=== PATIENT | male | born 1970 | race African-American/Black ===

== ENCOUNTER 2017-02-16 12:32 | Observation (INO) | payer BC, OTHER ==
[2017-02-16] MEDS ORDERED: SODIUM CHLORIDE 1,000 ML IV SCH (12:45)
--- NOTE | 2017-02-16 12:52 | PDOC ---
Attending Attestation - Resident Resident Name: Eduardo Corona - ED Attending Attestation I have performed the following: I have examined & evaluated the patient, The case was reviewed & discussed with the resident, I agree w/resident's findings & plan, Exceptions are as noted - HPI HPI: 02/16/17 13:11 The patient is a 46 year old male with past medical history of hypertension, hyperlipidemia, diabetes and asthma who arrives to the ED via EMS from [facility] for R sided facial droop that began this morning upon waking up. Pt's family first noticed it when they went to [place]. Last known normal was at 3am this morning when he went to sleep. He denies any weakness, numbness or tingling in any other extremities, denies slurred speech. Denies HUBER/N/V. Denies CP/SOB. The patient has a family history of stroke - both parents. - Physicial Exam PE: 02/16/17 13:24 "GENERAL: Awake, alert, and fully oriented, in no acute distress HEAD: No signs of trauma EYES: PERRLA, EOMI, sclera anicteric, conjunctiva clear ENT: Auricles normal inspection, hearing grossly normal, nares patent, oropharynx clear without exudates. Moist mucosa NECK: Nontender, no stepoffs, Normal ROM, supple, no lymphadenopathy, JVD, or masses LUNGS: Breath sounds equal, clear to auscultation bilaterally. No wheezes, and no crackles HEART: Regular rate and rhythm, normal S1 and S2, no murmurs, rubs or gallops ABDOMEN: Soft, nontender, normoactive bowel sounds. No guarding, no rebound. No masses EXTREMITIES: Normal range of motion, no edema. No clubbing or cyanosis. No cords, erythema, or tenderness NEUROLOGICAL: R facial droop with NO sparing of forehead, 5/5 strength and sensation in all extremities, Normal speech, normal gait SKIN: Warm, Dry, normal turgor, no rashes or lesions noted. " - Critical Care Time Total Critical Care Time: 30 Critical Care Statement: The care of this patient involved high complexity decision making to prevent further life threatening deterioration of the patient 's condition and/or to evaluate & treat vital organ system(s) failure or risk of failure. - Medical Decision Making 02/16/17 13:24 46 M with R facial droop. 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 Pt with otherwise normal neuro exam, making CVA unlikely. Last known normal was 9 hours prior to arrival, so pt outside window for TPA. - CTH - Labs - Neuro consult - Steroids for Linn's palsy 02/16/17 14:18 CTH negative. Discussed case with Dr. Thomas, who agrees that clinical presentation is more consistent with Linn's palsy. Recommends steroids. Labs notable for Positive Troponin 0.06. EKG with TWI in I and aVL. Discussed EKG and trop results with patient, who states that he was told during a prior hospitalization that he had "ischemia". Denies any chest pain or SOB at this time. He states that he has never seen a mat tester, never had a stress test, cath, or echo. States that he does not have a PMD at this time. Will admit pt for trending of troponin and cardiology consultation. Heart Score/ECG Review - ECG Impressions Comment:: 02/16/17 13:51 NSR, no CARLOS/STDs, TWIs in I and aVL, L axis deviation, intervals wnl NIH Stroke Scale - Last Known Well Date/Time & Onset Date Last Known Well: 02/16/17 Time Last Known Well: 03:00 - Initial Evaluation Level of consciousness: Alert Ask patient the month and their age: Answers both correctly Ask patient to open & close eyes; make fist and let go: Obeys both correctly Best gaze (horizontal eye movement): Normal Visual field testing: No visual field loss Facial paresis (Show teeth/raise eyebrows/close eyes tight): Partial paralysis ( total or near paralysis of lower face) Motor Function: Left Arm: Normal Motor Function: Right Arm: Normal (extends arm 90 (or 45) degrees for 10 seconds without drift Motor Function: Left Leg: Normal (extends leg 30 degrees for 5 seconds without drift) Motor Function: Right Leg: Normal (extends leg 30 degrees for 5 seconds without drift) Limb Ataxia: No ataxia Sensory(Use pinprick test arms,legs,trunk,face/side to side): Normal Best language (Describe picture, name items, read sentences): No Aphasia Dysarthria (read several words): Normal articulation Extinction and Inattention: No abnormality - Total Score NIH Stroke Scale Score: 2
[2017-02-16 12:53] LABS: BASO % 0.8 % (0-2.0); EOS % 4.4 % (0-4.5); HEMATOCRIT 45.1 % (35.4-49); LYMPH % 38.4 % (8-40); MCH 27.8 pg (25.7-33.7); MCHC 33.3 g/dl (32.0-35.9); MEAN CELL VOLUME 83.5 fl (80-96); MEAN PLT VOLUME 8.5 fl (7.5-11.1); MONO % 7.8 % (3.8-10.2); NEUT % 48.6 % (42.8-82.8); PLATELET COUNT 261 K/MM3 (134-434); RBC 5.41 M/mm3 (4.00-5.60); RDW 14.6 % (11.9-15.9); WHITE BLOOD COUNT 5.7 K/mm3 (4.0-10.0)
--- NOTE | 2017-02-16 13:10 | PDOC ---
History of Present Illness - General Stated Complaint: LT SIDE FACIAL DROOP Time Seen by Provider: 02/16/17 12:38 - History of Present Illness Initial Comments: 02/16/17 13:51 Mr. Harvey is a 46 yo male w/ pmh of hypertension and asthma who presents complaining of 4 hour history of facial tingling with progression to right sided facial droop involving both upper and lower halves of his face. He reports he went to bed around 0315 this morning feeling his normal self and that the tingling was present when he woke up around 8:15 this morning. His R eye began watering around 0915 with droop occurring around 1000. He is currently resting comfortably but concerned he may be having a stroke. The patient denies chest pain, shortness of breath, headache and dizziness. Denies fever, chills, nausea, vomit, diarrhea and constipation. Denies dysuria, frequency, urgency and hematuria. Allergies: Moxifloxacin, shellfish Past History - Past Medical History Allergies/Adverse Reactions: Allergies Allergy/AdvReac Type Severity Reaction Status Date / Time moxifloxacin HCl Allergy Intermediate Rash Verified 02/16/17 12:49 [From Avelox] iodine Allergy Verified 02/16/17 12:49 contrast dye Allergy Uncoded 02/16/17 12:49 Home Medications: Ambulatory Orders Amlodipine/Valsartan [Exforge 10-160 mg Tablet] 1 tab PO DAILY 10/28/13 Aspirin [Aspirin EC] 81 mg PO DAILY 10/28/13 Carvedilol [Coreg] 3.125 mg PO DAILY 10/28/13 Asthma: Yes (SEASONAL) HTN: Yes - Surgical History Appendectomy: Yes - Immunization History Td Vaccination: No - Suicide/Smoking/Psychosocial Hx Smoking Status: No Smoking History: Never smoked Years of Tobacco Use: 0 Have you smoked in the past 12 months: No Number of Cigarettes Smoked Daily: 0 Hx Alcohol Use: No Drug/Substance Use Hx: No Substance Use Type: None Review of Systems - Review of Systems Comments:: 02/16/17 13:59 GENERAL/CONSTITUTIONAL: No fever or chills. No weakness. HEAD, EYES, EARS, NOSE AND THROAT: +Right sided facial tingling with drooping of upper and lower face and right sided watery eye. CARDIOVASCULAR: No chest pain or shortness of breath RESPIRATORY: No cough, wheezing, or hemoptysis. GASTROINTESTINAL: No nausea, vomiting, diarrhea or constipation. GENITOURINARY: No dysuria, frequency, or change in urination. MUSCULOSKELETAL: No joint or muscle swelling or pain. No neck or back pain. SKIN: No rash NEUROLOGIC: No headache, vertigo, loss of consciousness, or change in strength/ sensation. ENDOCRINE: No increased thirst. No abnormal weight change HEMATOLOGIC/LYMPHATIC: No anemia, easy bleeding, or history of blood clots. ALLERGIC/IMMUNOLOGIC: No hives or skin allergy. *Physical Exam - Physical Exam Comments: 02/16/17 14:00 GENERAL: Awake, alert, and fully oriented, in no acute distress HEAD: No signs of trauma, normocephalic, atraumatic EYES: PERRLA, EOMI, sclera anicteric, conjunctiva clear ENT: Auricles normal inspection, hearing grossly normal, nares patent, oropharynx clear without exudates. Moist mucosa NECK: Normal ROM, supple, no lymphadenopathy, JVD, or masses LUNGS: No distress, speaks full sentences, clear to auscultation bilaterally HEART: Regular rate and rhythm, normal S1 and S2, no murmurs, rubs or gallops, peripheral pulses normal and equal bilaterally. ABDOMEN: Soft, nontender, normoactive bowel sounds. No guarding, no rebound. No masses EXTREMITIES: Normal inspection, Normal range of motion, no edema. No clubbing or cyanosis. NEUROLOGICAL: Cranial nerves II through XII grossly intact. Normal speech, normal gait, no focal sensorimotor deficits SKIN: Warm, Dry, normal turgor, no rashes or lesions noted. NIH Stroke Scale - Last Known Well Date/Time & Onset Date Last Known Well: 02/16/17 Time Last Known Well: 03:15 - Initial Evaluation Level of consciousness: Alert Ask patient the month and their age: Answers both correctly Ask patient to open & close eyes; make fist and let go: Obeys both correctly Best gaze (horizontal eye movement): Normal Visual field testing: No visual field loss Facial paresis (Show teeth/raise eyebrows/close eyes tight): Complete paralysis of one or both sides (Upper and lower face) Motor Function: Left Arm: Normal Motor Function: Right Arm: Normal (extends arm 90 (or 45) degrees for 10 seconds without drift Motor Function: Left Leg: Normal (extends leg 30 degrees for 5 seconds without drift) Motor Function: Right Leg: Normal (extends leg 30 degrees for 5 seconds without drift) Limb Ataxia: No ataxia Sensory(Use pinprick test arms,legs,trunk,face/side to side): Normal Best language (Describe picture, name items, read sentences): No Aphasia Dysarthria (read several words): Normal articulation Extinction and Inattention: No abnormality - Total Score NIH Stroke Scale Score: 3 tPA Exclusion checklist 3-4.5h - Time Elapsed Date last known well: 02/16/17 Time last known well: 03:15 Elaspsed time: Day(s) and 11 Hour(s) and 48 Minutes - Thrombolytic Therapy Candidate Is patient eligible for thrombolytic therapy: No - Exclusion Criteria 3-4.5 hr SBP greater than 185 or DBP greater than 110mmHg despite tx: No Recent IC/spinal surgery,head trauma or stroke<3mos.: No Hx IC hemorrhage, IC neoplasm, AV malformation or aneurysm: No Active internal bleeding: No Blding diathesis(low plt ct, inc PTT,INR>1.7 or use of NOAC): No Symptoms suggest subarachnoid hemorrhage: No CT demonstrates multilobar infarct(>1/3 cerebral hemiphere): No Arterial puncture at noncompressible site in previous 7 days: No Blood glucose concentration less than 50mg/dL (2.7mmol/L): No - Relative Exclusion Criteria 3-4.5 hr Life expectancy <1 yr or severe co-morbid illness: No : No Patient/family refused: No Rapid improvement: No Stroke severity too mild: Yes Recent acute AL (w/in previous 3 months): No Seizure at onset with postictal residual neuro impairments: No Major surgery or serious trauma w/in previous 14 days: No Recent GI or hemorrhage (w/in previous 21 days): No - Add'l Relative Exclusion 3-4.5 hr Age > 80: No Hx of both diabetes AND prior ischemic stroke: No Taking an oral anticoagulant regardless of INR: No NIHSS >25: No - Ineligibility reason(s) Reasons No tPA given: Outside of window - delayed arrival, See reason(s) noted above Critical Care Time/MDM Note - Medical Decision Making Note: 02/16/17 14:11 Mr. Harvey is a 46 yo male w/ pmh of asthma and hypertension who presents w/ symptoms consistent with Linn's Palsy. Neurology consulted, would like 8 day prednisolone taper started with outpatient follow-up (2 days 80mg, 2 days 60, 2 days 40, 2 days 20). Patient also noted to have mildly increased troponin with T -wave inversions noted on EKG. 02/16/17 14:17 On re-interview patient reports a prior diagnosis of possible cardiac ischemia for which he has never been evaluated. This in conjunction with above cardiac findings prompt admission for cardiac workup. 02/16/17 14:44 Paged hospitalist for admission as patient denies PCP. 02/16/17 15:03 Hospitalist agrees with plan for tele-obs admit. Discharge Disposition - Diagnosis Linn's palsy, Acute electrocardiogram changes, Elevated troponin I level - Discharge Dispostion Admit: Yes - Referrals Referrals: STAFF,NOT ON [Primary Care Provider] - - Patient Instructions - Post Discharge Activity
[2017-02-16 13:12] LABS: INR 1.1 (0.82-1.09); PROTHROMBIN TIME (PATIENT) 12.4 SEC (9.98-11.88)
[2017-02-16 13:19] LABS: ALBUMIN 4.3 g/dl (3.4-5.0); ANION GAP 6 (8-16); BILIRUBIN,TOTAL 0.6 mg/dL (0.2-1.0); BLOOD UREA NITROGEN 16 mg/dL (7-18); CALCIUM 9.1 mg/dL (8.5-10.1); CHLORIDE 103 mmol/L (98-107); CHOLESTEROL 198 mg/dL (50-200); CO2 30 mmol/L (21-32); CREATININE 1.3 mg/dL (0.7-1.3); GLUCOSE,RANDOM 95 mg/dL (74-106); LDL CHOLESTEROL (ONLY SJRH) 136 mg/dL (5-100); POTASSIUM 3.8 mmol/L (3.5-5.1); SGOT/AST 17 U/L (15-37); SGPT/ALT 23 U/L (12-78); SODIUM 139 mmol/L (136-145); TRIGLYCERIDES 178 mg/dL (35-160)
[2017-02-16 13:20] LABS: ALK PHOS 88 U/L (45-117); HDL CHOLESTEROL 31 mg/dL (40-60)
[2017-02-16] MEDS ORDERED: ASPIRIN 325 MG TABLET PO ONE ×2 (14:18→18:45)
[2017-02-16] MEDS ORDERED: PrednisoLONE 15 MG/5 ML UNIT-DOSE CUP PO ONE (14:30)
[2017-02-16] MEDS ORDERED: ACETAMINOPHEN 1000 MG/100 ML VIAL (NON FORMULARY) IVPB ONE (14:39)
--- NOTE | 2017-02-16 15:03 | HP ---
CHIEF COMPLAINT: PCP: HISTORY OF PRESENT ILLNESS: 46 year-old male with a PMH significant for HTN, HLD, NIDDM, and asthma who presented to the ED complaining of four hours of facial tingling with progression to right sided facial droop involving both upper and lower halves of his face. He reports he went to bed around 3:15 am feeling his normal self and that the tingling was present when he woke up around 8:15 am. His right eye began watering around 9:15 am, and the droop occurred around 10:00 am. Patient denied headache, dizziness, lightheadedness, visual disturbance, weakness, unsteadiness. He denied chest pain, palpitations, SOB, WARD, orthopnea, and lower extremity edema. Patient states he follows with his PCP for blood pressure control and she recently told him she was going to adjust his medications because his BP was too high. ER course was notable for: (1) CT head: no acute process; cyst v. polyp right maxillary antrum (2) First troponin 0.6 Recent Travel: No PAST MEDICAL HISTORY: Hypertension Hyperlipidemia NIDDM Asthma PAST SURGICAL HISTORY: Appendectomy Social History: Smoking: no Alcohol: no Drugs: no Family History: Allergies moxifloxacin HCl [From Avelox] Allergy (Intermediate, Verified 02/16/17 12:49) Rash iodine Allergy (Verified 02/16/17 12:49) contrast dye Allergy (Uncoded 02/16/17 12:49) HOME MEDICATIONS: Home Medications Medication Instructions Recorded Amlodipine/Valsartan [Exforge 1 tab PO DAILY 10/28/13 10-160 mg Tablet] Aspirin [Aspirin EC] 81 mg PO DAILY 10/28/13 Carvedilol [Coreg] 3.125 mg PO DAILY 10/28/13 REVIEW OF SYSTEMS CONSTITUTIONAL: Absent: fever, chills, diaphoresis, generalized weakness, malaise, loss of appetite, weight change HEENT: Absent: rhinorrhea, nasal congestion, throat pain, throat swelling, difficulty swallowing, mouth swelling, ear pain, eye pain, visual changes CARDIOVASCULAR: Absent: chest pain, syncope, palpitations, irregular heart rate, lightheadedness , peripheral edema RESPIRATORY: Absent: cough, shortness of breath, dyspnea with exertion, orthopnea, wheezing, stridor, hemoptysis GASTROINTESTINAL: Absent: abdominal pain, abdominal distension, nausea, vomiting, diarrhea, constipation, melena, hematochezia GENITOURINARY: Absent: dysuria, frequency, urgency, hesitancy, hematuria, flank pain, genital pain MUSCULOSKELETAL: Absent: myalgia, arthralgia, joint swelling, back pain, neck pain SKIN: Absent: rash, itching, pallor HEMATOLOGIC/IMMUNOLOGIC: Absent: easy bleeding, easy bruising, lymphadenopathy, frequent infections ENDOCRINE: Absent: unexplained weight gain, unexplained weight loss, heat intolerance, cold intolerance NEUROLOGIC: +right facial numbness, right eye watering, right facial droop Absent: headache, focal weakness or paresthesias, dizziness, unsteady gait, seizure, mental status changes, bladder or bowel incontinence PSYCHIATRIC: Absent: anxiety, depression, suicidal or homicidal ideation, hallucinations. PHYSICAL EXAMINATION Vital Signs - 24 hr 02/16/17 02/16/17 02/16/17 12:32 12:40 14:09 Temperature 97 F L Pulse Rate 74 Pulse Rate [ 72 Right] Respiratory 18 20 Rate Blood Pressure 159/105 Blood Pressure 165/105 [Right Arm] O2 Sat by Pulse 100 100 100 Oximetry (%) GENERAL: Awake, alert, and fully oriented, in no acute distress. HEAD: Right eye watering, right forehead mild droop, mild flattening of nasolabial fold. EYES: Pupils equal, round and reactive to light, extraocular movements intact, sclera anicteric, conjunctiva clear. Able to close right eye completely. EARS, NOSE, THROAT: Ears normal, nares patent, oropharynx clear without exudates. Moist mucous membranes. NECK: Normal range of motion, supple without lymphadenopathy, JVD, or masses. LUNGS: Breath sounds equal, clear to auscultation bilaterally. No wheezes, and no crackles. No accessory muscle use. HEART: Regular rate and rhythm, normal S1 and S2 without murmur, rub or gallop. ABDOMEN: Soft, nontender, not distended, normoactive bowel sounds, no guarding, no rebound, no masses. No hepatomegaly or splenomegaly. MUSCULOSKELETAL: Normal range of motion at all joints. No bony deformities or tenderness. No CVA tenderness. UPPER EXTREMITIES: 2+ pulses, warm, well-perfused. No cyanosis. No clubbing. No peripheral edema. LOWER EXTREMITIES: 2+ pulses, warm, well-perfused. No calf tenderness. No peripheral edema. NEUROLOGICAL: Cranial nerves II-XII intact. Normal speech. Normal gait. PSYCHIATRIC: Cooperative. Good eye contact. Appropriate mood and affect. SKIN: Warm, dry, normal turgor Laboratory Results - last 24 hr 02/16/17 02/16/17 02/16/17 12:40 12:40 12:40 WBC 5.7 RBC 5.41 Hgb 15.0 Hct 45.1 MCV 83.5 MCH 27.8 MCHC 33.3 RDW 14.6 Plt Count 261 MPV 8.5 Neutrophils % 48.6 Lymphocytes % 38.4 Monocytes % 7.8 Eosinophils % 4.4 Basophils % 0.8 PT with INR 12.40 H INR 1.10 Sodium 139 Potassium 3.8 Chloride 103 Carbon Dioxide 30 Anion Gap 6 L BUN 16 Creatinine 1.3 Creat Clearance w eGFR 59.43 Random Glucose 95 Calcium 9.1 Total Bilirubin 0.6 AST 17 ALT 23 Alkaline Phosphatase 88 Creatine Kinase 395 H Creatine Kinase Index 0.4 CK-MB (CK-2) 1.611 Troponin I 0.06 H Total Protein 8.0 Albumin 4.3 Triglycerides 178 H Cholesterol 198 Total LDL Cholesterol 136 H HDL Cholesterol 31 L Blood Type Antibody Screen 02/16/17 12:40 WBC RBC Hgb Hct MCV MCH MCHC RDW Plt Count MPV Neutrophils % Lymphocytes % Monocytes % Eosinophils % Basophils % PT with INR INR Sodium Potassium Chloride Carbon Dioxide Anion Gap BUN Creatinine Creat Clearance w eGFR Random Glucose Calcium Total Bilirubin AST ALT Alkaline Phosphatase Creatine Kinase Creatine Kinase Index CK-MB (CK-2) Troponin I Total Protein Albumin Triglycerides Cholesterol Total LDL Cholesterol HDL Cholesterol Blood Type B POSITIVE Antibody Screen Negative ASSESSMENT/PLAN: 46 year-old male with a PMH significant for HTN, NIDDM, and asthma who presented to the ED with right-sided Linn's Palsy. Placed on observation for initial elevated troponin and multiple risk factors for ACS. Linn's Palsy --mild to moderate dysfunction under House-Brackmann classification --initial dose 80mg prednisone given; patient and have expresse reluctance for course of steroids since patient has taken steroids in the past and experienced mood swings which he found disquieting; if patient agrees, order 80/80, 60/60, 40/40, 20/[address] Thomas --eye care: artificial tears solution hourly while awake (educate patient on self-administration), artificial tears gel at night; offered patient eye patch which he declined Hypertension --BP elevated --continue carvedilol, losartan, amlodipine NIDDM --Novolog sliding scale coverage Asthma --stable, no acute issues Elevated troponin --initial troponin 0.06, two pending --multiple risk factors for ACS: HTN, NIDDM --patient has never had cardiac workup --echo ordered --cardiology consult requested --lipid panel, TSH ordered Right maxillary cyst v. polyp --will need outpatient followup Visit type - Emergency Visit Emergency Visit: Yes ED Registration Date: 02/16/17 Care time: The patient presented to the Emergency Department on the above date and was hospitalized for further evaluation of their emergent condition. - New Patient This patient is new to me today: Yes Date on this admission: 02/17/17 - Critical Care Critical Care patient: No
[2017-02-16] MEDS ORDERED: ASPIRIN 81 MG CHEWABLE TABLETS PO ONE (15:30)
[2017-02-16] MEDS ORDERED: amLODIPine BESYLATE 10 MG TABLET (FP) PO ONE (15:30)
[2017-02-16] MEDS ORDERED: CARVEDILOL 3.125 MG TABLET (FP) PO SCH (15:30)
[2017-02-16] MEDS: VALSARTAN 160 MG TABLET (UD) PO SCH (16:57)
[2017-02-16 17:24] VITALS: BMI 40.7
[2017-02-16] MEDS ORDERED: PT OWN MED DRAWER 7, Y5N ONE (18:06)
[2017-02-16] MEDS ORDERED: ASPIRIN 81 MG CHEWABLE TABLETS PO SCH (18:30)
[2017-02-16] MEDS ORDERED: ASPIRIN COATED 81 MG TABLET.EC PO SCH (18:30)
[2017-02-16] MEDS ORDERED: ASPIRIN 325 MG ENTERIC COATED TABLET (FP) PO ONE (18:45)
[2017-02-17 07:21] LABS: BASO % 0.2 % (0-2.0); EOS % 0.1 % (0-4.5); HEMATOCRIT 47.4 % (35.4-49); HEMOGLOBIN 15.5 GM/dL (11.7-16.9); LYMPH % 9.2 % (8-40); MCH 27.6 pg (25.7-33.7); MCHC 32.7 g/dl (32.0-35.9); MEAN CELL VOLUME 84.4 fl (80-96); MEAN PLT VOLUME 9.2 fl (7.5-11.1); MONO % 0.6 % (3.8-10.2); NEUT % 89.9 % (42.8-82.8); PLATELET COUNT 279 K/MM3 (134-434); RBC 5.62 M/mm3 (4.00-5.60)
[2017-02-17 08:02] LABS: ALBUMIN 3.9 g/dl (3.4-5.0); ANION GAP 9 (8-16); BLOOD UREA NITROGEN 22 mg/dL (7-18); CALCIUM 9.4 mg/dL (8.5-10.1); CHLORIDE 100 mmol/L (98-107); CO2 26 mmol/L (21-32); CREATININE 1.5 mg/dL (0.7-1.3); GLUCOSE,RANDOM 177 mg/dL (74-106); MAGNESIUM 1.8 mg/dL (1.8-2.4); POTASSIUM 4.1 mmol/L (3.5-5.1); SGOT/AST 14 U/L (15-37); SGPT/ALT 23 U/L (12-78); SODIUM 135 mmol/L (136-145)
[2017-02-17 08:04] LABS: ALK PHOS 89 U/L (45-117); BILIRUBIN,TOTAL 0.5 mg/dL (0.2-1.0); TOT PROT 8.2 g/dl (6.4-8.2)
[2017-02-17] MEDS: VALSARTAN 160 MG TABLET (UD) PO SCH ×2 (08:14→09:53)
[2017-02-17] MEDS: amLODIPine BESYLATE 10 MG TABLET (FP) PO SCH ×2 (08:14→09:56)
[2017-02-17 09:08] LABS: CHOLESTEROL 217 mg/dL (50-200); HDL CHOLESTEROL 37 mg/dL (40-60); LDL CHOLESTEROL (ONLY SJRH) 157 mg/dL (5-100); TRIGLYCERIDES 91 mg/dL (35-160)
--- NOTE | 2017-02-17 09:13 | CON.CARD ---
Consult Consult Specialty:: cardio Referred by:: hospitalist Reason for Consultation:: elev troponin - History of Present Illness Chief Complaint: facial droop History of Present Illness: 46 yo male presented with facial droop. dx'd with Linn's palsy here. pt denies any other new neuro sx. no acute CV sx. has sob on exertion stable for at least couple of years he says. no cp, palpitations has been following with his PMD in [place] for 15 yrs, seeing her weekly for BP med titration but thus far not working well. had sleep study, sent for cpap titration but could not tolerate sec to claustrophobia PMH: HTN HPL DM obesity/CRISTI asthma - Alcohol/Substance Use Hx Alcohol Use: No - Smoking History Smoking history: Never smoked Have you smoked in the past 12 months: No Aproximately how many cigarettes per day: 0 Home Medications - Allergies Allergies/Adverse Reactions: Allergies Allergy/AdvReac Type Severity Reaction Status Date / Time moxifloxacin HCl Allergy Intermediate Rash Verified 02/16/17 12:49 [From Avelox] iodine Allergy Verified 02/16/17 12:49 contrast dye Allergy Uncoded 02/16/17 12:49 - Home Medications Home Medications: Ambulatory Orders Aspirin [Aspirin EC] 81 mg PO DAILY 10/28/13 Carvedilol [Coreg] 25 mg PO BID 10/28/13 Diclofenac Sodium 75 mg PO BID 02/16/17 Sitagliptin Phos/Metformin HCl [Janumet 50-1,000 mg Tablet] 1 each PO DAILY 08/27 Telmisartan/Amlodipine [Telmisartan-Amlodipine 80-10] 1 each PO DAILY 02/16/17 Vital Signs: Vital Signs Temperature 98 F 02/17/17 08:16 Pulse Rate 98 H 02/17/17 08:16 Respiratory Rate 18 02/17/17 08:16 Blood Pressure 177/99 02/17/17 08:16 O2 Sat by Pulse Oximetry (%) 98 02/16/17 20:30 - Other Data Labs, Other Data: CBC, BMP 02/17/17 07:00 02/17/17 07:00 INR, PTT INR 1.10 (0.82-1.09) 02/16/17 12:40 Troponin, BNP 02/16/17 02/16/17 12:40 19:40 Troponin I 0.06 H 0.05 Troponin, BNP 02/16/17 02/16/17 12:40 19:40 Troponin I 0.06 H 0.05 Laboratory Tests 02/16/17 02/16/17 02/17/17 12:40 19:40 07:00 WBC 7.0 Hgb 15.5 Plt Count 279 Sodium Potassium Carbon Dioxide BUN 16 Creatinine 1.3 AST ALT Troponin I 0.06 H 0.05 Albumin Triglycerides Cholesterol Total LDL Cholesterol HDL Cholesterol TSH 02/17/17 07:00 WBC Hgb Plt Count Sodium 135 L Potassium 4.1 Carbon Dioxide 26 BUN 22 H D Creatinine 1.5 H AST 14 L ALT 23 Troponin I Albumin 3.9 Triglycerides 91 D Cholesterol 217 H Total LDL Cholesterol 157 H HDL Cholesterol 37 L TSH 0.25 L Assessment/Plan ECG: NSR, LAFB/LVH, no path q's. +nonsp TWA's lateral leads likely LVH assctd repol abn (no prior) CXR: clear lungs/pleura CT head: no acute pathology 46 year-old male with a PMH significant for HTN, NIDDM, and asthma who presented to the ED with right-sided Linn's Palsy. Placed on observation for initial elevated troponin and multiple risk factors for ACS. Linn's Palsy -per neuro rec.s Hypertension -bp running 140s-160s/100s-120s -home regimen amlodip/telmisartan, carvedilol 25 bid (note: incorrect dose in med list here, hence has not received his usual meds) -BP chronically poorly controlled on above regimen -receiving valsartan 160 here--increase dose today -increase carvedilol to outpt dose -start chlorthalidone 25 qd, monitor creat trend -consider change carvedilol to labetalol or bystolic, +/- add hydralazine next -pt advised he should f/u with cardio for bp optimization as outpt, including ? oral appliance tx of CRISTI -echo to r/o LVH or dilated CMP in light of ekg and mild trop elevation YUNIOR: -creat 1.5 today, bumped from yest -pt large body habitus -observe trend with thiazide diuretic HPL: -LDL 150s, HDL low -given this is primary prevention pt, risk/benefit discussion of statin therapy should take place as outpt, with discussion of pooled cohort equation risk of IA /CVA and estimated CV reduction vs risk -pt should f/u with us after discharge for lipid and BP mgmt Elevated troponin -initial troponin 0.06 = not diagnostic of IA, rather c/w IA if clinical suspicion is present. -flat trend on serial enzymes, no clinical suspicion of ACS here -agree with echo (signif LVH, uncontrolled HTN) low TSH: -? hyperthyroidism -per hospitalist NIDDM: -per hospitalist obesity, CRISTI: -intolerant of cpap previously -outpt f/u re: oral appliance therapy
[2017-02-17 09:18] LABS: URINE APPEARANCE SLCLOUDY; URINE BILIRUBIN NEGATIVE (NEGATIVE); URINE BLOOD 1+ (NEGATIVE); URINE COLOR LTYELLOW; URINE GLUCOSE (UA) 1+ (NEGATIVE); URINE KETONE NEGATIVE (NEGATIVE); URINE LEUK ESTERASE NEGATIVE (NEGATIVE); URINE NITRITE NEGATIVE (NEGATIVE); URINE UROBILINOGEN NEGATIVE mg/dL (0.2-1.0)
[2017-02-17 09:19] LABS: URINE PROTEIN 2+ (NEGATIVE)
[2017-02-17 09:23] LABS: URIC ACID CRYSTALS RARE /hpf (NONE SEEN); URINE MUCUS RARE
[2017-02-17] MEDS: ASPIRIN COATED 81 MG TABLET.EC PO SCH (09:53)
[2017-02-17] MEDS: ARTIFICIAL TEARS (POLYVINYL ALCOHOL 1.4%) OPTH DROPS OD SCH ×14 (09:54→23:00)
[2017-02-17] MEDS ORDERED: VALSARTAN 160 MG TABLET (UD) PO SCH (10:00)
[2017-02-17] MEDS ORDERED: ARTIFICIAL TEARS (POLYVINYL ALCOHOL 1.4%) OPTH DROPS OU SCH (10:00)
[2017-02-17] MEDS ORDERED: AMLODIPINE PO SCH (10:00)
[2017-02-17] MEDS ORDERED: TELMISARTAN PO SCH (10:00)
[2017-02-17] MEDS ORDERED: [UNRECOGNIZED DRUG - OTHER] PO SCH (10:00)
[2017-02-17] MEDS ORDERED: ASPIRIN COATED 81 MG TABLET.EC PO SCH (10:00)
[2017-02-17] MEDS: CHLORTHALIDONE 25 MG TABLET PO SCH (11:13)
[2017-02-17] MEDS: CARVEDILOL 25 MG TABLET (FP) PO SCH ×2 (11:59→21:45)
--- NOTE | 2017-02-17 12:13 | EKG ---
Test Reason : Blood Pressure : / mmHG Vent. Rate : 101 BPM Atrial Rate : 101 BPM P-R Int : 164 ms QRS Dur : 098 ms QT Int : 346 ms P-R-T Axes : 037 -51 093 degrees QTc Int : 448 ms SINUS TACHYCARDIA POSSIBLE LEFT ATRIAL ENLARGEMENT LEFT ANTERIOR FASCICULAR BLOCK LEFT VENTRICULAR HYPERTROPHY T WAVE ABNORMALITY, CONSIDER LATERAL ISCHEMIA ABNORMAL ECG WHEN COMPARED WITH ECG OF 16-FEB-2017 13:13, NO SIGNIFICANT CHANGE WAS FOUND Confirmed by PRAVIN MAGALLANES MD ([id number]) on 02/17/2017 12:13:23 PM Referred By: Confirmed By:PRAVIN MAGALLANES MD
--- NOTE | 2017-02-17 12:37 | EKG ---
Test Reason : Blood Pressure : / mmHG Vent. Rate : 071 BPM Atrial Rate : 071 BPM P-R Int : 148 ms QRS Dur : 110 ms QT Int : 380 ms P-R-T Axes : 027 -46 090 degrees QTc Int : 412 ms NORMAL SINUS RHYTHM LEFT ANTERIOR FASCICULAR BLOCK MINIMAL VOLTAGE CRITERIA FOR LVH, MAY BE NORMAL VARIANT ABNORMAL ECG NO PREVIOUS ECGS AVAILABLE Confirmed by PRAVIN MAGALLANES MD ([id number]) on 02/17/2017 12:36:55 PM Referred By: Confirmed By:PRAVIN MAGALLANES MD
[2017-02-17] MEDS ORDERED: predniSONE 20 MG TABLET (UD) PO ONE (15:22)
--- NOTE | 2017-02-17 17:13 | PN ---
Progress Note (short form) - Note Progress Note: Subjective: The patient was seen and examined at the bedside, he reports mild improvement in his right facial weakness. Current Medications Generic Name Dose Route Start Last Admin Trade Name Blaise PRN Reason Stop Dose Admin Amlodipine Besylate 10 mg 02/17/17 10:00 02/17/17 09:56 Norvasc - PO Not Given DAILY SAN[facility] Artificial Tears 1 applic 02/17/17 22:00 Artificial Tears Ointment - OD HS SANDRO Artificial Tears 1 drop 02/17/17 10:00 02/17/17 18:02 Artificial Tears OD 1 drop Q1H [facility] Administration Aspirin 81 mg 02/17/17 10:00 02/17/17 09:53 Ecotrin - PO 81 mg DAILY [facility] Administration Carvedilol 25 mg 02/17/17 11:30 02/17/17 11:59 Coreg - PO 25 mg BID [facility] Administration Chlorthalidone 25 mg 02/17/17 10:00 02/17/17 11:13 Hygroton - PO 25 mg DAILY SAN[facility] Administration Prednisone 60 mg 02/18/17 15:00 Deltasone - PO 02/19/17 15:01 DAILY@1500 SANDRO Valsartan 320 mg 02/17/17 09:14 02/17/17 09:53 Diovan - PO 320 mg DAILY SAN[facility] Administration Objective: Vital Signs Period Temp Pulse Resp BP Sys/Castillo Pulse Ox Last 24 Hr 98 F-98.6 F 78-98 18-20 134-177/74-104 98-98 Physical Exam: General: CBCD WBC 7.0 K/mm3 (4.0-10.0) 02/17/17 07:00 RBC 5.62 M/mm3 (4.00-5.60) H 02/17/17 07:00 Hgb 15.5 GM/dL (11.7-16.9) 02/17/17 07:00 Hct 47.4 % (35.4-49) 02/17/17 07:00 MCV 84.4 fl (80-96) 02/17/17 07:00 MCHC 32.7 g/dl (32.0-35.9) 02/17/17 07:00 RDW 15.0 % (11.9-15.9) 02/17/17 07:00 Plt Count 279 K/MM3 (134-434) 02/17/17 07:00 MPV 9.2 fl (7.5-11.1) 02/17/17 07:00 CMP Sodium 135 mmol/L (136-145) L 02/17/17 07:00 Potassium 4.1 mmol/L (3.5-5.1) 02/17/17 07:00 Chloride 100 mmol/L (98-107) 02/17/17 07:00 Carbon Dioxide 26 mmol/L (21-32) 02/17/17 07:00 Anion Gap 9 (8-16) 02/17/17 07:00 BUN 22 mg/dL (7-18) H D 02/17/17 07:00 Creatinine 1.5 mg/dL (0.7-1.3) H 02/17/17 07:00 Creat Clearance w eGFR 50.38 (>60) 02/17/17 07:00 Random Glucose 177 mg/dL (74-106) H D 02/17/17 07:00 Calcium 9.4 mg/dL (8.5-10.1) 02/17/17 07:00 Total Bilirubin 0.5 mg/dL (0.2-1.0) 02/17/17 07:00 AST 14 U/L (15-37) L 02/17/17 07:00 ALT 23 U/L (12-78) 02/17/17 07:00 Alkaline Phosphatase 89 U/L (45-117) 02/17/17 07:00 Total Protein 8.2 g/dl (6.4-8.2) 02/17/17 07:00 Albumin 3.9 g/dl (3.4-5.0) 02/17/17 07:00 CARDIAC ENZYMES Creatine Kinase 395 IU/L (39-308) H 02/16/17 12:40 Troponin I 0.05 ng/ml (0.00-0.05) 02/16/17 19:40 Assessment: This is a 46 year old male with PMHx of HTN, NIDDM, asthma, who presented to the ED with right facial droop that began this morning after waking up. 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
--- NOTE | 2017-02-17 21:06 | CONSULT ---
Consult - text type - Consultation Consultation Note: NEUROLOGY CONSULTATION is greatly appreciated: This 46 yo RH m man is a [employer] who has been out of work since due to R Achilles tendon injury. PMH sig for HT and asthma on amliodipine, valsartan, carvedilol and ASA. On Friday morning his noted Right facial droop driving to [place]. In retrospect Pt. recalls Right periauricular headache x 2 days, tearing from the right eye on Friday night while watching TV and a "novacane feeling" over the right posterior tongue. Case discussed with Dr. Corona in the ER last night. Tapering steroids and a Lyme titre were recommended. Pt is admitted for BP condtrol. Dr. David's consultation is read and appreciated. CT of head (reviewed) is normal. TSH=0.25; HR=331; Ctgj=130 DENIA: Obese, no bruits. cor reg. External auditory canals are clear of vessicles. NEURO: MS/speech: Normal CN II-XII: sig for moderate, peripheral, CN VII mononeuropathy with complete volitional eye closure. Remainder CN normal Motor: No drift or tremor. Normal strength, tone and bulk. normal reflexes. downgoing toes. Coord: No FTN dystaxia Sensory: Normal including the face. Romberg - Gait: Normal IMP: Right CN VII Mononeuropathy (Linn's Palsy). Suggest: Continue Prednisone 80 mg /d x 2; 60 mg/d x2; 40 mg/d x2 and 20 mg/d x2. Check Lyme titre when available. Continue BP control. Consider chol Rx. Weight loss counselling. Repeat TSH and check T4 Neuro f/u as out patient. Thank you very much, Christian Thomas MD
[2017-02-17] MEDS ORDERED: MINERAL OIL/PETROLATUM,WHITE 3.5 GM TUBE OD SCH (22:00)
[2017-02-18] MEDS: ARTIFICIAL TEARS (POLYVINYL ALCOHOL 1.4%) OPTH DROPS OD SCH ×13 (02:59→14:15)
[2017-02-18 07:40] LABS: ANION GAP 8 (8-16); BLOOD UREA NITROGEN 23 mg/dL (7-18); CHLORIDE 100 mmol/L (98-107); CO2 28 mmol/L (21-32); GLUCOSE,RANDOM 131 mg/dL (74-106); POTASSIUM 3.9 mmol/L (3.5-5.1); SODIUM 136 mmol/L (136-145)
[2017-02-18 07:46] LABS: CALCIUM 10.1 mg/dL (8.5-10.1); CREATININE 1.4 mg/dL (0.7-1.3)
[2017-02-18] MEDS ORDERED: PT OWN MED DRAWER 7, Y5N ONE ×3 (08:06→14:13)
[2017-02-18 08:20] VITALS: TEMP 98
[2017-02-18] MEDS: CHLORTHALIDONE 25 MG TABLET PO SCH (09:05)
[2017-02-18] MEDS: ASPIRIN COATED 81 MG TABLET.EC PO SCH (09:05)
[2017-02-18] MEDS: VALSARTAN 160 MG TABLET (UD) PO SCH (09:05)
[2017-02-18] MEDS: amLODIPine BESYLATE 10 MG TABLET (FP) PO SCH (09:05)
[2017-02-18] MEDS: CARVEDILOL 25 MG TABLET (FP) PO SCH (09:05)
--- NOTE | 2017-02-18 11:53 | PN ---
Progress Note (short form) - Note Progress Note: Consult Specialty:: cardio Referred by:: hospitalist Reason for Consultation:: elev troponin - History of Present Illness Chief Complaint: facial droop History of Present Illness: 46 yo male presented with facial droop. dx'd with Linn's palsy here. pt denies any other new neuro sx. no acute CV sx. has sob on exertion stable for at least couple of years he says. no cp, palpitations has been following with his PMD in [place] for 15 yrs, seeing her weekly for BP med titration but thus far not working well. had sleep study, sent for cpap titration but could not tolerate sec to claustrophobia PMH: HTN HPL DM obesity/CRISTI asthma Current Medications Amlodipine Besylate (Norvasc -) 10 mg PO DAILY [facility] Last Admin: 02/18/17 09:05 Dose: 10 mg Artificial Tears (Artificial Tears Ointment -) 1 applic OD HS [facility] Last Admin: 02/17/17 21:44 Dose: Not Given Artificial Tears (Artificial Tears) 1 drop OD Q1H [facility] Last Admin: 02/18/17 09:06 Dose: 1 drop Aspirin (Ecotrin -) 81 mg PO DAILY [facility] Last Admin: 02/18/17 09:05 Dose: 81 mg Carvedilol (Coreg -) 25 mg PO BID [facility] Last Admin: 02/18/17 09:05 Dose: 25 mg Chlorthalidone (Hygroton -) 25 mg PO DAILY [facility] Last Admin: 02/18/17 09:05 Dose: 25 mg Prednisone (Deltasone -) 60 mg PO DAILY@1500 [facility] Stop: 02/19/17 15:01 Valsartan (Diovan -) 320 mg PO DAILY [facility] Last Admin: 02/18/17 09:05 Dose: 320 mg Vital Signs - 24 hr 02/17/17 02/17/17 02/17/17 13:00 19:10 20:09 Temperature 98 F 98.6 F 98.4 F Pulse Rate 88 76 83 Respiratory 20 19 20 Rate Blood Pressure 134/74 151/98 175/103 O2 Sat by Pulse Oximetry (%) 02/18/17 02/18/17 02/18/17 02:00 06:00 08:16 Temperature 97.9 F 98.0 F Pulse Rate 68 72 70 Respiratory 20 18 18 Rate Blood Pressure 135/76 156/101 137/102 O2 Sat by Pulse Oximetry (%) 02/18/17 08:20 Temperature Pulse Rate Respiratory 18 Rate Blood Pressure O2 Sat by Pulse 98 Oximetry (%) Intake & Output 02/16/17 02/17/17 02/18/17 02/19/17 07:59 07:59 07:59 07:59 Intake Total 400 200 Balance 400 200 Weight 260 lb CBC, BMP 02/17/17 07:00 02/18/17 06:50 Laboratory Tests 02/16/17 02/17/17 02/18/17 19:40 07:00 06:50 Troponin I 0.05 0.05 Albumin 3.9 Triglycerides 91 D Cholesterol 217 H Total LDL Cholesterol 157 H HDL Cholesterol 37 L TSH 0.17 L D Free T4 0.88 Assessment/Plan ECG: NSR, LAFB/LVH, no path q's. +nonsp TWA's lateral leads likely LVH assctd repol abn (no prior) tele: SR echo: CXR: clear lungs/pleura CT head: no acute pathology 46 year-old male with a PMH significant for HTN, NIDDM, and asthma who presented to the ED with right-sided Linn's Palsy. Placed on observation for initial elevated troponin and multiple risk factors for ACS. Linn's Palsy -per neuro rec.s Hypertension -bp running 140s-160s/100s-120s -home regimen amlodip/telmisartan, carvedilol 25 bid (note: incorrect dose in med list here, initially did not not received his usual meds). BP chronically poorly controlled on above regimen. started chlorthalidone 25 qd here. , monitor creat trend -consider change carvedilol to labetalol or bystolic, +/- add hydralazine next -pt advised he should f/u with cardio for bp optimization as outpt, including ? oral appliance tx of CRISTI -echo to r/o LVH or dilated CMP in light of ekg and mild trop elevation YUNIOR: -creat 1.5 today, bumped from yest -pt large body habitus -observe trend with thiazide diuretic HPL: -LDL 150s, HDL low -given this is primary prevention pt, risk/benefit discussion of statin therapy should take place as outpt, with discussion of pooled cohort equation risk of NV /CVA and estimated CV reduction vs risk -pt should f/u with us after discharge for lipid and BP mgmt Elevated troponin -initial troponin 0.06 = not diagnostic of NV, rather c/w NV if clinical suspicion is present. -flat trend on serial enzymes, no clinical suspicion of ACS here -agree with echo (signif LVH, uncontrolled HTN) low TSH: -? hyperthyroidism -per hospitalist NIDDM: -per hospitalist obesity, CRISTI: -intolerant of cpap previously -outpt f/u re: oral appliance therapy
[2017-02-18 12:52] VITALS: BP 140/91; PULSE 63
--- NOTE | 2017-02-18 13:07 | DS ---
Physical Examination Vital Signs: Vital Signs Temperature 98.0 F 02/18/17 08:16 Pulse Rate 63 02/18/17 12:51 Respiratory Rate 18 02/18/17 08:20 Blood Pressure 140/91 02/18/17 12:51 O2 Sat by Pulse Oximetry (%) 98 02/18/17 08:20 Labs: CBC, BMP 02/17/17 07:00 02/18/17 06:50 Discharge Summary Reason For Visit: LINN'S PALSY, ELEVATED TROPONIN I LEVEL,ACUTE ELEC Current Active Problems Acute electrocardiogram changes (Acute) Linn's palsy (Acute) Elevated troponin I level (Acute) Hospital Course: Discussed with RN, patient's BP 140/91 Condition: Improved - Instructions Diet, Activity, Other Instructions: Please return to the ED with new, persistent, or worsening symptoms. Please follow-up with providers as indicated. Referrals: Tanna Smith MD [Staff Physician] - (Please follow-up with Dr. Smith ( cardiology) within 1 week for further management of your blood pressure and to discuss starting medication for your cholesterol) Christian Thomas MD [Staff Physician] - (Please follow-up with Dr. Thomas for further management of your Linn's palsy) Joselo Palmer MD [Staff Physician] - (Please follow-up with your primary care provider within 1 week to have your basic metabolic panel re-drawn (check your creatinine and electrolytes). Also, you must have your thyroid stimulating hormone and T4 rechecked in 4 weeks. ) Disposition: HOME - Home Medications Comprehensive Discharge Medication List: Ambulatory Orders Aspirin [Aspirin EC] 81 mg PO DAILY 10/28/13 Amlodipine Besylate [Norvasc -] 10 mg PO DAILY #30 tablet 02/18/17 Carvedilol [Coreg -] 25 mg PO BID #60 tablet 02/18/17 Chlorthalidone [Hygroton -] 25 mg PO DAILY #30 tablet 02/18/17 Pantoprazole Sodium [Protonix] 40 mg PO DAILY #14 tablet. 02/18/17 Polyvinyl Alcohol [Artificial Tears] 1 drop OD Q1H #1 bot 02/18/17 Prednisone [Deltasone -] 20 mg PO ASDIR #9 tablet 02/18/17 Sitagliptin Phosphate [Januvia] 50 mg PO DAILY #30 tablet 02/18/17 Valsartan 320 mg PO DAILY #30 tablet 02/18/17
[2017-02-18] MEDS ORDERED: predniSONE 20 MG TABLET (UD) PO SCH (15:00)
== END 2017-02-18 14:41 | disposition home or self-care (01) ==
LOC: JER 12:32 → JERBED 15:05 → J4W 16:20
PROVIDERS: ADMIT Internal Medicine; ATTEND Registered Nurse
DX: G51.0 Bell's palsy (principal); R94.31 Abnormal electrocardiogram [ECG] [EKG]; R77.8 Other specified abnormalities of plasma proteins; E78.5 Hyperlipidemia, unspecified; E11.9 Type 2 diabetes mellitus without complications; I10 Essential (primary) hypertension; E66.9 Obesity, unspecified; N17.9 Acute kidney failure, unspecified; J45.998 Other asthma; Z88.1 Allergy status to other antibiotic agents; Z91.048 Other nonmedicinal substance allergy status; Z91.041 Radiographic dye allergy status; Z68.41 Body mass index [BMI] 40.0-44.9, adult
CPT/HCPCS: 36415; 70450-TC; 71045-TC; 80048; 80053; 80061; 81003; 81015; 82465; 82550; 82553; 83718; 83721; 83735; 84439; 84443; 84478; 84484; 85025; 85610; 86618; 86850; 86900; 86901; 93005; 93010; 93306-TC; 99285-25; G0378

== ENCOUNTER 2017-03-31 12:55 | Emergency (ER) | payer BC, OTHER ==
[2017-03-31 13:11] VITALS: BP 113/70; PULSE 72; TEMP 98.5; BMI 42.7
[2017-03-31] MEDS ORDERED: KETOROLAC TROMETHAMINE 30 MG/1 ML VIAL IM ONE (13:24)
--- NOTE | 2017-03-31 13:47 | PDOC ---
History of Present Illness - General Chief Complaint: Pain Stated Complaint: LEFT FOOT, KNEE PAIN Time Seen by Provider: 03/31/17 13:01 - History of Present Illness Initial Comments: 03/31/17 13:43 46 M with h/o DM, HTN, HLD presenting to ED with LLE swelling and pain. Pt states that he injured his R ankle 3 weeks ago, tearing 2 ligaments. He has since been ambulating with a cane and has been bearing most of his weight on his L leg. Pt denies any falls or injury. He states that over the past 3 weeks, he has had progressively worsening pain and swelling in both his L knee and ankle. Denies any fevers, denies redness. The swelling usually improves with rest and elevation. He has not taken anything for pain other than one naproxen last night, which helped minimally. Pt has h/o gout in his big toe but states this feels different. Pt is still able to ambulate and bear weight. Past History - Past Medical History Allergies/Adverse Reactions: Allergies Allergy/AdvReac Type Severity Reaction Status Date / Time moxifloxacin HCl Allergy Intermediate Rash Verified 03/31/17 13:10 [From Avelox] iodine Allergy Verified 03/31/17 13:10 contrast dye Allergy Uncoded 03/31/17 13:10 Home Medications: Ambulatory Orders Aspirin [Aspirin EC] 81 mg PO DAILY 10/28/13 Amlodipine Besylate [Norvasc -] 10 mg PO DAILY #30 tablet 02/18/17 Carvedilol [Coreg -] 25 mg PO BID #60 tablet 02/18/17 Chlorthalidone [Hygroton -] 25 mg PO DAILY #30 tablet 02/18/17 Pantoprazole Sodium [Protonix] 40 mg PO DAILY #14 tablet. 02/18/17 Polyvinyl Alcohol [Artificial Tears] 1 drop OD Q1H #1 bot 02/18/17 Sitagliptin Phosphate [Januvia] 50 mg PO DAILY #30 tablet 02/18/17 Valsartan 320 mg PO DAILY #30 tablet 02/18/17 predniSONE [Deltasone -] 20 mg PO ASDIR #9 tablet 02/18/17 Oxycodone HCl/Acetaminophen [Percocet 5-325 mg Tablet] 1 tab PO Q6H PRN #12 tablet MDD 4 tabs 03/31/17 Asthma: Yes (SEASONAL) CVA: No COPD: No Diabetes: Yes HTN: Yes - Surgical History Appendectomy: Yes - Immunization History Td Vaccination: No - Suicide/Smoking/Psychosocial Hx Smoking Status: No Smoking History: Never smoked Years of Tobacco Use: 0 Have you smoked in the past 12 months: No Number of Cigarettes Smoked Daily: 0 Hx Alcohol Use: No Drug/Substance Use Hx: No Substance Use Type: None Review of Systems - Review of Systems Comments:: 03/31/17 13:45 "GENERAL/CONSTITUTIONAL: No fever or chills. No weakness. HEAD, EYES, EARS, NOSE AND THROAT: No change in vision. No ear pain or discharge. No sore throat. CARDIOVASCULAR: No chest pain or shortness of breath. RESPIRATORY: No cough, wheezing, or hemoptysis. GASTROINTESTINAL: No nausea, vomiting, diarrhea or constipation. GENITOURINARY: No dysuria, frequency, or change in urination. MUSCULOSKELETAL: L knee and ankle swelling and pain. No neck or back pain. SKIN: No rash NEUROLOGIC: No headache, vertigo, loss of consciousness, or change in strength/ sensation. ENDOCRINE: No increased thirst. No abnormal weight change. HEMATOLOGIC/LYMPHATIC: No anemia, easy bleeding, or history of blood clots. ALLERGIC/IMMUNOLOGIC: No hives or skin allergy. " *Physical Exam - Vital Signs Last Vital Signs Temp Pulse Resp BP Pulse Ox 98.5 F 72 18 113/70 96 03/31/17 12:55 03/31/17 12:55 03/31/17 12:55 03/31/17 12:55 03/31/17 12:55 - Physical Exam Comments: 03/31/17 13:45 "GENERAL: Awake, alert, and fully oriented, in no acute distress HEAD: No signs of trauma EYES: PERRLA, EOMI, sclera anicteric, conjunctiva clear ENT: Auricles normal inspection, hearing grossly normal, nares patent, oropharynx clear without exudates. Moist mucosa NECK: Nontender, no stepoffs, Normal ROM, supple, no lymphadenopathy, JVD, or masses LUNGS: Breath sounds equal, clear to auscultation bilaterally. No wheezes, and no crackles HEART: Regular rate and rhythm, normal S1 and S2, no murmurs, rubs or gallops ABDOMEN: Soft, nontender, normoactive bowel sounds. No guarding, no rebound. No masses EXTREMITIES: LLE with mild effusion of ankle and knee without any bony tenderness, Normal range of motion. no erythema, No clubbing or cyanosis. No cords, erythema, or tenderness NEUROLOGICAL: Cranial nerves II through XII intact. 5/5 strength and sensation in all extremities, Normal speech, normal gait, normal cerebellar function SKIN: Warm, Dry, normal turgor, no rashes or lesions noted. " ED Treatment Course - RADIOLOGY Radiology Studies Ordered: Category Date Time Status DUPLEX VASCUL US-1 LEG [US] Stat Ultrasound 03/31/17 13:24 Ordered Medical Decision Making - Medical Decision Making 03/31/17 13:46 46 M with L knee and ankle pain and swelling. Likely bursitis/tendinitis from overuse. Pt with no bony tenderness and no trauma to suggest acute fx. Pt with no infectious symptoms and normal ROM, making septic arthritis less likely. Possible pseudogout. DVT unlikely but given asymmetric swelling, will obtain US. - LLE doppler - Percocet 03/31/17 14:23 US negative for DVT. Pt reassessed - pain improved with percocet. Likely bursitis/tendinitis, possible pseudogout. Pt ambulatory with cane. Pt is well appearing, with normal vitals. Clinically stable for DC at this time. I discussed the physical exam findings, ancillary test results and final diagnoses with the patient. I answered all of the patient's questions. The patient was satisfied with the care received and felt comfortable with the discharge plan and treatment plan. The patient agrees to follow up with the primary care physician within 24-72 hours. *DC/Admit/Observation/Transfer Diagnosis at time of Disposition: Left knee pain - Discharge Dispostion Disposition: HOME Condition at time of disposition: Stable - Prescriptions Prescriptions: Oxycodone HCl/Acetaminophen [Percocet 5-325 mg Tablet] 1 tab PO Q6H PRN #12 tablet MDD 4 tabs PRN Reason: Pain - Referrals Referrals: Von Dean MD [Staff Physician] - - Patient Instructions Printed Discharge Instructions: DI for Knee Effusion Additional Instructions: Please follow up with your orthopedic surgeon within 72 hours for further evaluation of your knee pain. If you experience any worsening swelling, pain, redness, warmth, fevers, or any other concerning symptoms, return to the ER immediately. - Post Discharge Activity - Attestations Physician Attestion: 03/31/17 14:15 I, Dr. Von Warren MD, attest that this document has been prepared under my direction and personally reviewed by me in its entirety. I further attest, that it accurately reflects all work, treatment, procedures and medical decision -making performed by me.
[2017-03-31] MEDS ORDERED: KETOROLAC TROMETHAMINE 30 MG/1 ML VIAL ONE (13:50)
== END 2017-03-31 14:30 | disposition home or self-care (01) ==
LOC: FER 12:55
PROC: 3E0333Z Introduction of Anti-inflammatory into Peripheral Vein, Percutaneous Approach (ICD-10-PCS; principal; 2017-03-31)
DX: M25.562 Pain in left knee (principal); M25.572 Pain in left ankle and joints of left foot; I10 Essential (primary) hypertension; E78.5 Hyperlipidemia, unspecified; E11.9 Type 2 diabetes mellitus without complications; Z88.1 Allergy status to other antibiotic agents; Z91.041 Radiographic dye allergy status; Z91.048 Other nonmedicinal substance allergy status; Z79.82 Long term (current) use of aspirin
CPT/HCPCS: 93971-TC; 99283-25

== ENCOUNTER 2017-04-30 09:29 | Emergency (ER) | payer BC ==
[2017-04-30 09:57] VITALS: BP 130/90; PULSE 78; TEMP 98.9; BMI 38.7
--- NOTE | 2017-04-30 10:01 | PDOC ---
History of Present Illness - General Chief Complaint: Pain Stated Complaint: RIGHT ELBOW BURSITIS Time Seen by Provider: 04/30/17 09:51 - History of Present Illness Initial Comments: 04/30/17 10:38 Chief complaint: Pain and swelling right elbow History of present illness: Blunt trauma to right elbow several days ago, progressive pain and swelling over the olecranon. Review of systems: No fever/chills, distal numbness tingling pain or weakness, limited range of motion. No other injuries. Past medical history: Eny-rcedekp-iyljhizff diabetes. Olecranon bursitis of the left elbow several years ago. High blood pressure. Social/family history reviewed and noncontributory Physical exam: Alert and oriented well-developed well-nourished no acute distress cheerful and cooperative Right elbow: Olecranon bursitis with swelling, fluctuance, erythema, heat, and moderate tenderness. Pulses full. No distal sensory or motor deficits. Full range of motion. No deformity suggestive of a fracture. Impression: Olecranon bursitis, possibly infected. Plan: Antibiotics, aspiration and culture, compression, and orthopedic follow- up. Past History - Past Medical History Allergies/Adverse Reactions: Allergies Allergy/AdvReac Type Severity Reaction Status Date / Time moxifloxacin HCl Allergy Intermediate Hives Verified 04/30/17 09:41 [From Avelox] iodine Allergy Hives Verified 04/30/17 09:41 contrast dye Allergy Intermediate Hives Uncoded 04/30/17 09:41 Home Medications: Ambulatory Orders Aspirin [Aspirin EC] 81 mg PO DAILY 10/28/13 Amlodipine Besylate [Norvasc -] 10 mg PO DAILY #30 tablet 02/18/17 Carvedilol [Coreg -] 25 mg PO BID #60 tablet 02/18/17 Chlorthalidone [Hygroton -] 25 mg PO DAILY #30 tablet 02/18/17 Sitagliptin Phosphate [Januvia] 50 mg PO DAILY #30 tablet 02/18/17 Valsartan 320 mg PO DAILY #30 tablet 02/18/17 Oxycodone HCl/Acetaminophen [Percocet 5-325 mg Tablet] 1 tab PO Q6H PRN #12 tablet MDD 4 tabs 03/31/17 Asthma: Yes (SEASONAL) CVA: No COPD: No Diabetes: Yes HTN: Yes Other medical history: GOUT AND BRUSITIS - Surgical History Appendectomy: Yes - Immunization History Td Vaccination: No - Suicide/Smoking/Psychosocial Hx Smoking Status: No Smoking History: Never smoked Years of Tobacco Use: 0 Have you smoked in the past 12 months: No Number of Cigarettes Smoked Daily: 0 Information on smoking cessation initiated: No Hx Alcohol Use: No Drug/Substance Use Hx: No Substance Use Type: None *Physical Exam - Vital Signs Last Vital Signs Temp Pulse Resp BP Pulse Ox 98.9 F 78 20 130/90 98 04/30/17 09:34 04/30/17 09:34 04/30/17 09:34 04/30/17 09:34 04/30/17 09:34 Medical Decision Making - Medical Decision Making 04/30/17 10:41 Procedure note: Aspiration of olecranon bursa Skin was prepped with Betadine, then thoroughly scrubbed with saline. Local anesthetic was administered distal to the bursa. Aspiration of the bursa was accomplished, entering the bursa distally through the soft tissue of the forearm to avoid direct penetration. Approximately 10 mL of serosanguineous fluid was obtained and sent for culture Bacitracin was applied to the wound, the wound was covered with 4 x 4, and an Sylvain bandage was applied for mild pressure. Wound care, rest and elevation, and continue compression were recommended. Signs of worsening infection were discussed with the patient and he was advised to follow-up with orthopedist in 3-5 days for further treatment. He and his agree, he was fully ambulatory and in no significant pain or other distress upon discharge with his to follow-up as directed. *DC/Admit/Observation/Transfer Diagnosis at time of Disposition: Olecranon bursitis, right elbow - Discharge Dispostion Disposition: HOME Condition at time of disposition: Improved Admit: No - Referrals Referrals: Von Dean MD [Staff Physician] - 3 days - Patient Instructions Printed Discharge Instructions: How to Apply an Sylvain Wrap, DI for Elbow Bursitis Additional Instructions: Antibiotics as directed. Wound care with bacitracin as directed. If no improvement, especially if there is increased pain, swelling, redness, or drainage, see management development specialist as recommended. - Post Discharge Activity
[2017-04-30] MEDS ORDERED: CEPHALEXIN MONOHYDRATE 500 MG CAPSULE (UD) PO ONE (10:02)
[2017-04-30] MEDS ORDERED: CEPHALEXIN MONOHYDRATE 500 MG CAPSULE (UD) ONE (10:34)
== END 2017-04-30 11:03 | disposition home or self-care (01) ==
LOC: FER 09:29
DX: M70.21 Olecranon bursitis, right elbow (principal); X58.XXXA Exposure to other specified factors, initial encounter; Y93.89 Activity, other specified; Y92.9 Unspecified place or not applicable; J30.2 Other seasonal allergic rhinitis; E11.9 Type 2 diabetes mellitus without complications; I10 Essential (primary) hypertension
CPT/HCPCS: 87070; 87205; 99282-25

== ENCOUNTER 2019-10-09 10:03 | Emergency (ER) | payer BC, OTHER ==
[2019-10-09] MEDS ORDERED: IBUPROFEN 600 MG TABLET (FP) PO ONE ×2 (10:08→10:19)
--- NOTE | 2019-10-09 10:13 | PDOC ---
History of Present Illness - General Chief Complaint: Pain Stated Complaint: LEFT KNEE PAIN AND SWELLING Time Seen by Provider: 10/09/19 10:08 History Source: Patient, Family Exam Limitations: No Limitations - History of Present Illness Initial Comments: 10/09/19 10:09 HPI 49 YOM with h/o HTN, ankle fx s/p repair, DM, gout presenting with left knee pain and swelling x 4 days. He stated he was walking outdoors, when his left knee buckled. no fall or additional trauma. since then, progressively worsening left knee pain, swelling and redness. He has tried topical anesthetics, ice, tylenol, without much relief. He admits to having similar knee pain on the C/L side, which was attributed to meniscal tear. he has also sustained a right ankle/foot fx after buckling, s/p surgical repair in 03/2019 no f/c. no focal weakness or paresthesias. no skin color changes or pallor. he is also c/o left lower back pain, with radiation down his left buttock, worse with movement. pt states he has history of gout, recently started taking allopurinol daily; has prn colchicine. he is compliant with his diet, no seafood intake, no red meats or deli meats or alcohol use. Review of Systems Constitutional: no fevers or chills. MUSCULOSKELETAL: + joint pain and swelling. No muscle pain/arthralgias. Back: back pain SKIN: no redness or skin changes, no discharge, no rash. No wounds. Hematologic: no easy bruising/bleeding. NEUROLOGIC: No focal weakness, numbness or tingling. Allergic/Immunologic: +medication allergies All other systems reviewed and negative, or as documented in HPI. physical exam General: NAD, well appearing HEENT: NCAT, EOMI, PERRL. airway patent Resp: no distress, speaking full sentences. Abdomen: soft, no tenderness, nondistended Vascular: 2+ DP pulses symmetric and equal. Back: no midline tenderness, no stepoffs, FROM MSK: b/l lower extremities with soft compartment. no calf tenderness. 5/5 plantar and dorsiflexion. SILT. no laxity at knee jt. 2+ DP pulses bilaterally. +moderately swollen Left anterior knee +palp suprapatellar knee effusion. Neuro: alert, no focal neurologic deficits, 5/5 plantar and dorsiflexion, SILT in L1-S1 distribution, wiggles toes bilaterally Skin: color normal color, warm and well perfused. Cap refill <2 sec. left anterior and suprapatellar knee warmth, tender and swollen; no erythema or skin discoloration 10/09/19 10:10 10/09/19 14:44 10/09/19 14:52 10/09/19 15:24 Past History - Medical History Allergies/Adverse Reactions: Allergies Allergy/AdvReac Type Severity Reaction Status Date / Time moxifloxacin HCl Allergy Intermediate Hives Verified 10/09/19 10:05 [From Avelox] iodine Allergy Hives Verified 10/09/19 10:05 contrast dye Allergy Intermediate Hives Uncoded 10/09/19 10:05 Home Medications: Ambulatory Orders Aspirin [Aspirin EC] 81 mg PO DAILY 10/28/13 Amlodipine Besylate [Norvasc -] 10 mg PO DAILY #30 tablet 02/18/17 Carvedilol [Coreg -] 25 mg PO BID #60 tablet 02/18/17 Chlorthalidone [Hygroton -] 25 mg PO DAILY #30 tablet 02/18/17 Sitagliptin Phosphate [Januvia] 50 mg PO DAILY #30 tablet 02/18/17 Allopurinol [Zyloprim -] 100 mg PO DAILY 10/09/19 Colchicine [Colcrys] 1.2 mg PO PRN 10/09/19 Ergocalciferol [Vitamin D2] 50,000 unit PO ONCE 10/09/19 Indomethacin 50 mg PO TID PRN #15 capsule 10/09/19 Losartan Potassium 50 mg PO DAILY 10/09/19 Asthma: Yes (SEASONAL) CVA: No COPD: No Diabetes: Yes HTN: Yes - Surgical History Appendectomy: Yes - Immunization History Td Vaccination: No - Psycho-Social/Smoking History Smoking Status: No Smoking History: Never smoked Years of Tobacco Use: 0 Have you smoked in the past 12 months: No Number of Cigarettes Smoked Daily: 0 Procedures - Arthrocentesis Indication: Inflammation, Reduce Pain Arthrocentesis Site: left: knee Flexion: <20 degrees Betadine Prep: Yes Sterile Dressing Applied: Yes Dry Tap: No Fluid Color: Straw colored Anesthesia: 1% Lidocaine Needle Size (guage): 18g Complications: No (120ml of straw colored synovial fluid removed) ED Treatment Course - RADIOLOGY Radiology Studies Ordered: Category Date Time Status KNEE 3 POS-LEFT [RAD] Stat Radiology 10/09/19 10:08 Ordered Medical Decision Making - Medical Decision Making 10/09/19 10:09 ddx. fx, contusion, knee effusion, DVT, msk strain, hemarthrosis, septic arthritis, inflammatory arthritis, gouty arthritis. unlikely dvt or vascular pathology. NVI in BLE VS reviewed, wnl analgesia Xray left knee normal joint space alignment, no acute fx or dislocation.\ Suprapatellar effusion noted confirmed with ultrasound which shows a moderately sized suprapatellar effusion. Due to the extent and significantly swollen knee, will perform arthrocentesis to evaluate for infection versus inflammation versus hemarthrosis. Patient was consented at the bedside discussed indications and risks for the procedure, which may include but not limited to pain, swelling, bleeding, vessel or nerve injury, infection, failure procedure, continued pain. Patient verbalized understanding and consents to the procedure. See procedure note. sent cell count, crystal analysis, uric acid, g stain and cultures will need to await senior market intelligence consultant and lab testing 10/09/19 14:44 pain feels much improved, ROM is intact, ambulatory without difficulty. NVI has been resting comfortably pending the results. - prelim results with Gram stain and culture pending wbcs ~21K, and no rbcs. not likely septic arthritis, as pt without systemic sx. no purulence was visualized. PMNs_<75% of total wbc count; only 90 this is more likely fitting picture of inflammatory joint effusion/arthritis, vs gouty arthritis flare given his history. there is presumed prelim synovial crystals seen rx indomethacin has colchicine prn already, discussed use and prn use and to avoid overtaking for risk of side effect profile. Pt to be discharged in stable condition. Patient and family made aware of clinical impression, treatment recommendations and disposition plan, return precautions discussed (including but not limited to new or persistent/worsening symptoms, pain, fevers, or signs of infection, chest pain, respiratory distress, inability to tolerate oral intake, dehydration, syncope, or neurologic changes). Follow up with PMD and/or specialist as recommended, follow up information provided, take medications as instructed for duration of time. continue with supportive care, avoid triggers and precipitants. All questions answered to patient's satisfaction and expressed understanding and comfort with this. At the time of discharge, the patient is alert, clinically improved, tolerating po and verbalizes understanding of instructions, satisfied with the care received and felt comfortable with the plan. Patient does not suffer from an acute life-threatening medical condition at this time and is safe for outpatient follow-up. 10/09/19 14:52 10/09/19 14:54 10/09/19 15:21 Discharge - Discharge Information Problems reviewed: Yes Clinical Impression/Diagnosis: Effusion of left knee Gout attack Qualifiers: Gout site: knee Gout etiology: unspecified cause Laterality: left Qualified Code(s): M10.9 - Gout, unspecified Condition: Stable Disposition: HOME - Admission No - Additional Discharge Information Prescriptions: Indomethacin 50 mg PO TID PRN #15 capsule PRN Reason: Pain - Follow up/Referral Referrals: Von Dean MD [Staff Physician] - Hayder Garner DO [Staff Physician] - Christian Rdz MD [Staff Physician] - - Patient Discharge Instructions Patient Printed Discharge Instructions: DI for Gout, DI for Knee Effusion, DI for Knee Pain Additional Instructions: keep knee/leg elevated rest and ice as needed tylenol and/or ibuprofen as needed for pain control your knee was aspirated for synovial fluid analysis, results were remarkable for some inflammation, not a septic joint or infection monitor for symptoms such as fever, chills, pain, neurologic changes, swelling, redness, skin discoloration follow up with your primary doctor and orthopedist specialist has been provided for adequate followup and evaluation of your symptoms. - Post Discharge Activity
[2019-10-09 10:18] VITALS: BP 141/91; PULSE 79; TEMP 98.7; BMI 41.8
[2019-10-09] MEDS ORDERED: LIDOCAINE HCL 1%, 10 MG/ML (20ML VIAL) ONE (11:19)
[2019-10-09] MEDS ORDERED: LIDOCAINE 5% TOPICAL PATCH TP ONE (12:00)
[2019-10-09] MEDS ORDERED: LIDOCAINE 5% TOPICAL PATCH ONE (12:15)
[2019-10-09] MEDS ORDERED: LIDOCAINE HCL 1%, 10 MG/ML (20ML VIAL) NR ONE (13:00)
[2019-10-09 14:39] LABS: BF WBC & OTHER NUCLEATED CELLS 21915 /mm3
[2019-10-09 15:15] LABS: BODY FLUID MONOCYTE 10 %
== END 2019-10-09 15:29 | disposition home or self-care (01) ==
LOC: FER 10:03
DX: M25.462 Effusion, left knee (principal)
CPT/HCPCS: 36415; 73562-TC-LT-FY; 84560; 87070; 87075; 87205; 89060; 99284-25

== ENCOUNTER 2019-11-14 18:37 | Emergency (ER) | payer BC, OTHER ==
[2019-11-14] MEDS ORDERED: SODIUM CHLORIDE 0.9% 500 ML INFUS.BAG IV ONE (18:41)
--- OUTSIDE RECORDS SUMMARY | 2019-11-14 18:43 | XMS ---
:1970 Author Organization [facility] Support Name Relationship Address Phone VERIZON Unavailable [address] [place] [address] JOSEPH HUMPHREY [phone] [facility] [place] [address] JOSEPH HUMPHREY Spouse [phone] [facility] [place] [address] Re-disclosure Warning The records that you are about to access may contain information from federally- assisted alcohol or drug abuse programs. If such information is present, then the following federally mandated warning applies: This information has been disclosed to you from records protected by federal confidentiality rules (42 CFR part 2). The federal rules prohibit you from making any further disclosure of this information unless further disclosure is expressly permitted by the written consent of the person to whom it pertains or as otherwise permitted by 42 CFR part 2. A general authorization for the release of medical or other information is NOT sufficient for this purpose. The Federal rules restrict any use of the information to criminally investigate or prosecute any alcohol or drug abuse patient.The records that you are about to access may contain highly sensitive health information, the redisclosure of which is protected by Article 27-F of the [facility] Public Health law. If you continue you may haveaccess to information: Regarding HIV / AIDS; Provided by facilities licensed or operated by the [facility] Office of Mental Health; or Provided by the [facility] Office for People With Developmental Disabilities. If such information is present, then the following [facility] mandated warning applies: This information has been disclosed to you from confidential records which are protected by state law. State law prohibits you from making any further disclosure of this information without the specific written consent of the person to whom it pertains, or as otherwise permitted by law. Any unauthorized further disclosure in violation of state law may result in a fine or fpc sentence or both. A general authorization for the release of medical or other information is NOT sufficient authorization for further disclosure. Insurance Providers Payer name Policy type Policy ID Covered Covered green party's Policy P osmin / Coverage green party ID relationship to Christopher Inf ormation type christopher LOCAL [id number] SP [id number] [facility] [place] OUT OF [id number] SP [id number] [place] LOCAL [id number] SP [id number] [facility] Results ID Date Data Source [id number] 09/24/2019 12:00:00 AM EDT [facility] Name Value Range Interpretation Description Data Sup porting Code Source(s) Document(s ) SARS [facility] coronavirus 2 RNA This lab was ordered by [facility] and reported by [facility]. ID Date Data Source [id number] 08/11/2019 12:00:00 AM EDT [facility] Name Value Range Interpretation Code Description Data Chantel rce(s) Supporting Document(s ) 2018-nCoV [facility] RNA XXX LEANNA+probe- Imp This lab was ordered by [facility] and reported by [facility] ID Date Data Source [id number] 07/02/2019 12:00:00 AM EDT [facility] Name Value Range Interpretation Code Description Data Chantel rce(s) Supporting Document(s ) 2018-nCoV [facility] RNA XXX LEANNA+probe- Imp This lab was ordered by [facility] and reported by [facility] Procedure
[2019-11-14] MEDS ORDERED: ACETAMINOPHEN 1000 MG/100 ML VIAL (NON FORMULARY) IVPB ONE (18:46)
[2019-11-14] MEDS ORDERED: METOCLOPRAMIDE HCL INJECTION 10 MG/2 ML VIAL IVPUSH ONE (18:46)
--- NOTE | 2019-11-14 18:54 | PDOC ---
History of Present Illness - General Chief Complaint: Altered Mental Status Stated Complaint: WEAKNESS Time Seen by Provider: 11/14/19 18:45 History Source: Patient Exam Limitations: No Limitations - History of Present Illness Initial Comments: 11/14/19 18:48 HPI: This is a 49 y/o male with a PMH of HTN, HLD, NIDDM, asthma and [place] Palsy presenting to the ED due to AMS and frontal headache since yesterday. Per the patient and his , he began acting confused when he returned from shopping yesterday. He was able to answer questions but it took him longer to get them out. His said he was lethargic and falling asleep in his chair. She reports some left lower facial dropping. Patient states the headache began around the same time as the AMS. This headache is band like and 10. reports that he experienced something similar 3 years ago. He was hospitalized and no abnormalities were found. He was told it was [place] Palsy. ROS: GENERAL/CONSTITUTIONAL: No fever/chills, diaphoresis Admits to generalized weakness HEENT: Left eye lacrimation. No ear pain. No sore throat. CARDIOVASCULAR: No chest pain, palpitations RESPIRATORY: No shortness of breath, dyspnea with exertion, cough, wheezing, or hemoptysis. GASTROINTESTINAL: No abdominal pain, nausea, vomiting GENITOURINARY: No dysuria, frequency MUSCULOSKELETAL: No joint or muscle swelling or pain. SKIN: No rash or hives NEUROLOGIC: Yes frontal headache, dizziness, unsteady gait, and generalized weakness. Admits to confusion.Denied loss of consciousness. No change in strength/sensation. ENDOCRINE: No increased thirst. No unexplained weight loss. HEMATOLOGIC/LYMPHATIC: No anemia, easy bleeding, or history of blood clots. PMH: HTN, HLD, NIDDM, asthma and [place] Palsy PSx: Bilateral knee replacements Social Hx: Denied etoh, tobacco, drug use Meds: See nurse note Allergies: See nurse note PE: GENERAL: Awake, alert, and fully oriented. Slow to respond to questions. HEENT: Normocephalic, atraumatic. PERRLA, EOMI. Conjunctival erythema and lacrimation of left eye. NECK: Normal ROM and supple. No lymphadenopathy, JVD, or masses. No meningeal signs. CARDIOVASCULAR: Regular rate and rhythm, normal S1 and S2 PULMONARY: No respiratory distress. Breath sounds equal, clear to auscultation bilaterally. ABDOMEN: Soft, nontender, normoactive bowel sounds. EXTREMITIES: Normal range of motion, no edema or erythema, no calf tenderness. No clubbing or cyanosis. NEUROLOGICAL: Cranial nerves II through XII grossly intact. Slowed speech, unsteady gait. Motor and sensation intact in upper and lower extremities bilaterally. No focal neurologic deficits. SKIN: Warm, Dry, normal turgor, no rashes or lesions noted. Normal capillary refill. MDM: 11/14/19 18:57 This is a 49 y/o male with a PMH of HTN, HLD, NIDDM, asthma and [place] Palsy presenting to the ED due to 2 days of AMS and frontal headache. - Headache and AMS since yesterday - Reports this is similar to his BP two years ago - No focal neurological deficits - No fever, nuchal rigidity ddx: CVI, mass, encephalitis, cluster headache - CBC, CMP, Cardiac panel, Coags - CT head, CXR, EKG - 1000mg tylenol, Reglan for headache, high flow o2 for possible cluster headache 11/14/19 19:04 - Patient signed out to night team pending imaging Past History - Medical History Allergies/Adverse Reactions: Allergies Allergy/AdvReac Type Severity Reaction Status Date / Time moxifloxacin HCl Allergy Intermediate Hives Verified 11/14/19 18:54 [From Avelox] iodine Allergy Hives Verified 11/14/19 18:54 contrast dye Allergy Intermediate Hives Uncoded 11/14/19 18:54 Home Medications: Ambulatory Orders Aspirin [Aspirin EC] 81 mg PO DAILY 10/28/13 Amlodipine Besylate [Norvasc -] 10 mg PO DAILY #30 tablet 02/18/17 Carvedilol [Coreg -] 25 mg PO BID #60 tablet 02/18/17 Chlorthalidone [Hygroton -] 25 mg PO DAILY #30 tablet 02/18/17 Sitagliptin Phosphate [Januvia] 50 mg PO DAILY #30 tablet 02/18/17 Allopurinol [Zyloprim -] 100 mg PO DAILY PRN 10/09/19 Colchicine [Colcrys] 1.2 mg PO PRN PRN 10/09/19 Ergocalciferol [Vitamin D2] 50,000 unit PO WEEKLY 10/09/19 Indomethacin 50 mg PO TID PRN #15 capsule 10/09/19 Losartan Potassium 50 mg PO DAILY 10/09/19 Diclofenac Sodium [Voltaren -] 50 mg PO TID PRN 11/14/19 Dulaglutide [Trulicity] 0.75 mg SQ WEEKLY 11/14/19 Asthma: Yes (SEASONAL) CVA: No COPD: No Diabetes: Yes HTN: Yes - Surgical History Appendectomy: Yes - Immunization History Td Vaccination: No - Psycho-Social/Smoking History Smoking Status: No Smoking History: Never smoked Years of Tobacco Use: 0 Have you smoked in the past 12 months: No Number of Cigarettes Smoked Daily: 0 ED Treatment Course - LABORATORY CBC & Chemistry Diagram: 11/14/19 19:05 11/14/19 19:05 - ADDITIONAL ORDERS Additional order review: Laboratory Results 11/14/19 18:44 POC Glucometer 137 11/14/19 18:44 POC Glucometer 137 - RADIOLOGY Radiology Studies Ordered: Category Date Time Status HEAD CT WITHOUT CONTRAST [CT] Stat CT Scan 11/14/19 18:42 Ordered CHEST X-RAY PORTABLE* [RAD] Stat Radiology 11/14/19 18:43 Ordered Discharge - Discharge Information Problems reviewed: Yes Clinical Impression/Diagnosis: Headache Qualifiers: Headache chronicity pattern: acute headache Intractability: not intractable Qualified Code(s): R51.9 - Headache, unspecified Condition: Good Disposition: HOME - Follow up/Referral - Patient Discharge Instructions Additional Instructions: Return to the emergency department immediately with ANY new, persistent or worsening symptoms. Continue any medications as previously prescribed by your physician. You should follow up with your primary doctor as soon as possible regarding today's emergency department visit. . Please make sure your doctor reviews the results of your emergency evaluation. Thank you for coming to the Emergency Department today for your care. It was a pleasure to see you today. Please note that your evaluation is INCOMPLETE until you follow-up with your doctor. - Post Discharge Activity
[2019-11-14 19:02] VITALS: BMI 39.4
--- NOTE | 2019-11-14 19:08 | PDOC ---
Attending Attestation - Resident Resident Name: ThonyKat - ED Attending Attestation I have performed the following: I have examined & evaluated the patient, The case was reviewed & discussed with the resident, I agree w/resident's findings & plan, Exceptions are as noted - HPI HPI: 11/14/19 19:11 49yo male with hx of dm, htn, hld with a frontal headache since yesterday. States he went shopping at the store yesterday when he developed the leonardo and felt confused. Pt returned home and did not take any meds for the leonardo since it started yesterday. per the , she feels he is speaking more slowly and has been "off" when walking. Pt ambulated into the ER with a steady gait. Pt denies cp/sob. No neck pain. No f/c. No v/d. C/o nausea with the leonardo. No cough. No sore throat. No abd pain. No parethesias. No other complaints. - Physicial Exam PE: 11/14/19 19:16 Gen: aaox3, uncomfortable heent: EOMI, PERRL, tearing R eye, no rhinorrhea, posterior pharynx clear, mmm neck: supple, no meningeal signs heart: +s1s2 reg lungs: cta b/l abd: soft, nt/nd +bs ext: no c/c/e, pulses intact, ambulatory in the ER with a steady gait neuro: cn ii-xii grossly intact, muscle strength 5/5 UE and LE, sensation intact - Medical Decision Making 11/14/19 19:19 a/p: 49yo male with leonardo and confusion since yesterday -concern for cva vs brain mass vs toxic metabolic encephalopathy -no infections signs/symptoms -low suspicion for meningitis -will send labs, ekg, cxr, head ct -will medicate with reglan, tylenol, oxygen -pt has been signed out to Dr. Smith pending eval and lab/imaging results Heart Score/ECG Review - ECG Intrepretation Comment:: 11/14/19 19:18 sinus at 70, nl axis, nl interval, lvh, t wave inversions lateral leads which are unchanged from prior, no acute st changes, abnl ekg NIH Stroke Scale - Last Known Well Date/Time & Onset Date Last Known Well: 11/13/19 - Initial Evaluation Level of consciousness: Alert Ask patient the month and their age: Answers both correctly Ask patient to open & close eyes; make fist and let go: Obeys both correctly Best gaze (horizontal eye movement): Normal Visual field testing: No visual field loss Facial paresis (Show teeth/raise eyebrows/close eyes tight): Normal symmetrical movement Motor Function: Left Arm: Normal Motor Function: Right Arm: Normal (extends arm 90 (or 45) degrees for 10 seconds without drift Motor Function: Left Leg: Normal (extends leg 30 degrees for 5 seconds without drift) Motor Function: Right Leg: Normal (extends leg 30 degrees for 5 seconds without drift) Limb Ataxia: No ataxia Sensory(Use pinprick test arms,legs,trunk,face/side to side): Normal Best language (Describe picture, name items, read sentences): No Aphasia Dysarthria (read several words): Normal articulation Extinction and Inattention: No abnormality - Total Score NIH Stroke Scale Score: 0 Discharge - Discharge Information Problems reviewed: Yes Clinical Impression/Diagnosis: Headache Condition: Good - Follow up/Referral - Patient Discharge Instructions - Post Discharge Activity tPA Exclusion checklist 3-4.5h - Time Elapsed Date last known well: 11/13/19 - Thrombolytic Therapy Candidate Is patient eligible for thrombolytic therapy: No - Ineligibility reason(s) Reasons No tPA given: Outside of window - delayed arrival
[2019-11-14] MEDS ORDERED: METOCLOPRAMIDE HCL INJECTION 10 MG/2 ML VIAL ONE (19:17)
[2019-11-14] MEDS ORDERED: ACETAMINOPHEN INJECTION 100 ML IVPB ONE (19:17)
[2019-11-14 19:34] LABS: BASO % 1.9 % (0-2.0); EOS % 1.8 % (0-4.5); HEMATOCRIT 43.5 % (35.4-49); HEMOGLOBIN 14.6 GM/dl (11.7-16.9); LYMPH % 19.9 % (8-40); MCH 28.3 pg (25.7-33.7); MCHC 33.6 g/dl (32.0-35.9); MEAN CELL VOLUME 84.1 fl (80-96); MEAN PLT VOLUME 8.8 fl (7.5-11.1); MONO % 4.9 % (3.8-10.2); NEUT % 71.5 % (42.8-82.8); PLATELET COUNT 283 K/MM3 (134-434); RBC 5.18 M/mm3 (4.00-5.60); RDW 15.3 % (11.9-15.9); WHITE BLOOD COUNT 8.1 K/mm3 (4.0-10.8)
[2019-11-14 19:41] LABS: ACTIVATED PTT 26.8 SECONDS (25.2-36.5)
[2019-11-14 19:42] LABS: BILIRUBIN,TOTAL 0.9 mg/dl (0.2-1); CALCIUM 9.6 mg/dl (8.5-10); CREATININE 1.9 mg/dl (0.55-1.3); MAGNESIUM 1.6 mg/dL (1.8-2.4); POTASSIUM 3.5 mmol/L (3.5-5.1); TOT PROT 7.7 g/dl (6.4-8.2)
[2019-11-14 19:45] LABS: INR 1.24 (0.82-1.09); PROTHROMBIN TIME (PATIENT) 13.8 SEC (10.2-13.0)
--- NOTE | 2019-11-14 20:35 | PDOC ---
*Physical Exam - Vital Signs Last Vital Signs Temp Pulse Resp BP Pulse Ox 99.1 F 66 18 112/62 97 11/14/19 18:40 11/14/19 20:00 11/14/19 20:00 11/14/19 20:00 11/14/19 20:00 ED Treatment Course - LABORATORY CBC & Chemistry Diagram: 11/14/19 19:05 11/14/19 19:05 - ADDITIONAL ORDERS Additional order review: Laboratory Results 11/14/19 11/14/19 11/14/19 19:05 19:05 19:05 PT with INR 13.8 H INR 1.24 H PTT (Actin FS) 26.8 Sodium 136 Potassium 3.5 Chloride 96 L Carbon Dioxide 28 Anion Gap 12 BUN 29.0 H Creatinine 1.9 H Est GFR (CKD-EPI)AfAm 46.93 Est GFR (CKD-EPI)NonAf 40.49 POC Glucometer Random Glucose 130 H Calcium 9.6 Magnesium 1.6 L Total Bilirubin 0.9 AST 26 ALT 25 Alkaline Phosphatase 77 Creatine Kinase 558 H Creatine Kinase Index 1.2 CK-MB (CK-2) 6.8 H Troponin I 0.03 Total Protein 7.7 Albumin 4.0 11/14/19 18:44 PT with INR INR PTT (Actin FS) Sodium Potassium Chloride Carbon Dioxide Anion Gap BUN Creatinine Est GFR (CKD-EPI)AfAm Est GFR (CKD-EPI)NonAf POC Glucometer 137 Random Glucose Calcium Magnesium Total Bilirubin AST ALT Alkaline Phosphatase Creatine Kinase Creatine Kinase Index CK-MB (CK-2) Troponin I Total Protein Albumin 11/14/19 11/14/19 19:05 18:44 RBC 5.18 MCV 84.1 MCHC 33.6 RDW 15.3 MPV 8.8 Neutrophils % 71.5 Lymphocytes % 19.9 Monocytes % 4.9 Eosinophils % 1.8 Basophils % 1.9 POC Glucometer 137 - Medications Given in the ED: ED Medications Discontinued Medications Generic Name Dose Route Start Last Admin Trade Name Freq PRN Reason Stop Dose Admin Acetaminophen 1,000 mg 11/14/19 18:46 11/14/19 19:20 Ofirmev Injection - IVPB 11/14/19 18:47 1,000 mg ONCE ONE Administration Metoclopramide HCl 10 mg 11/14/19 18:46 11/14/19 19:15 Reglan Injection - IVPUSH 11/14/19 18:47 10 mg ONCE ONE Administration Sodium Chloride 1,000 ml 11/14/19 18:41 11/14/19 19:10 Normal Saline - IV 11/14/19 18:42 1,000 ml ONCE ONE Administration ED Progress Note - Progress Note Progress Note: 11/14/19 20:34 This is an obese 49-year-old male who comes in complaining of a headache. Care of this patient was transferred to me from Dr. Mobley at 1900 hrs. Shortly after my arrival patient headache resolved with the use of 100% oxygen. Patient however is getting a head CT to rule out any acute intracranial pathology. 11/14/19 21:50 CAT scan was negative for any acute intracranial pathology. Patient feels much better and was discharged. Patient symptoms resolved with oxygen this most likely is secondary to a cluster headache Discharge - Discharge Information Problems reviewed: Yes Clinical Impression/Diagnosis: Headache Condition: Good - Follow up/Referral - Patient Discharge Instructions Additional Instructions: Return to the emergency department immediately with ANY new, persistent or wo rsening symptoms. Continue any medications as previously prescribed by your physician. You should follow up with your primary doctor as soon as possible regarding today's emergency department visit. . Please make sure your doctor reviews the results of your emergency evaluation. Thank you for coming to the Emergency Department today for your care. It was a pleasure to see you today. Please note that your evaluation is INCOMPLETE until you follow-up with your doctor. - Post Discharge Activity
[2019-11-14 21:38] VITALS: BP 128/74; PULSE 63
[2019-11-14 21:39] VITALS: TEMP 98.9
--- NOTE | 2019-11-15 17:10 | EKG ---
Test Reason : Blood Pressure : / mmHG Vent. Rate : 070 BPM Atrial Rate : 070 BPM P-R Int : 140 ms QRS Dur : 102 ms QT Int : 386 ms P-R-T Axes : 036 -31 117 degrees QTc Int : 416 ms NORMAL SINUS RHYTHM LEFT AXIS DEVIATION MINIMAL VOLTAGE CRITERIA FOR LVH, MAY BE NORMAL VARIANT ABNORMAL ECG WHEN COMPARED WITH ECG OF 17-FEB-2017 09:21, T WAVE VARIATION VENT. RATE HAS DECREASED Confirmed by SONA HERZOG, PRAVIN ([id number]) on 11/15/2019 5:10:22 PM Referred By: LAKISHA HSU Confirmed By:PRAVIN MAGALLANES MD
== END 2019-11-14 21:59 | disposition home or self-care (01) ==
LOC: FER 18:37
PROC: 3E0333Z Introduction of Anti-inflammatory into Peripheral Vein, Percutaneous Approach (ICD-10-PCS; principal; 2019-11-14)
PROC: 3E033GC Introduction of Other Therapeutic Substance into Peripheral Vein, Percutaneous Approach (ICD-10-PCS; 2019-11-14)
DX: R51 Headache (principal)
CPT/HCPCS: 36415; 70450-TC; 71045-TC-FY; 80053; 82550; 82553; 82962; 83735; 84443; 84484; 85025; 85610; 85730; 93005; 99285-25; J0131; U0003

== ENCOUNTER 2019-11-16 11:34 | Inpatient (IN) | payer BC, OTHER ==
--- NOTE | 2019-11-16 12:49 | PDOC ---
History of Present Illness - General Chief Complaint: CVA/TIA Stated Complaint: Head/Neck problem Time Seen by Provider: 11/16/19 12:03 History Source: Patient, Spouse Exam Limitations: No Limitations - History of Present Illness Initial Comments: 11/16/19 12:49 49M PMH HTN, HLD, NIDDM, asthma and [place] Palsy presenting for evaluation of right sided headache mainly involving the temporal, occiput, and neck x4 days. Headache has been constant and very progressively worsening over the 4 days. Has had tearing of left eye, feels tongue is heavy and occasionally biting it, also off balance while walking and driving. Per , speech is slurred and off. Was seen at [facility] on 11/14/19 for evaluation of the same symptoms; negative head CT, and treated for headache. Symptoms persist but no new sx. Requesting MRI. Accompanied by at bedside. allergies reviewed with patient and . PCP Dr. Alonso Manuel. Seen Dr. Thomas for neuro, had migraines in the past (this headache is not similar to those). FHx early CVAs in 50s. tPA Exclusion checklist 3-4.5h - Time Elapsed Date last known well: 11/13/19 Time last known well: 12:00 Elaspsed time: 3 Day(s) and 12 Hour(s) and 47 Minutes - Thrombolytic Therapy Candidate Is patient eligible for thrombolytic therapy: No - Ineligibility reason(s) Reasons No tPA given: Outside of window - delayed arrival NIH Stroke Scale - Last Known Well Date/Time & Onset Date Last Known Well: 11/13/19 Time Last Known Well: 12:00 - Initial Evaluation Level of consciousness: Alert Ask patient the month and their age: Answers both correctly Ask patient to open & close eyes; make fist and let go: Obeys both correctly Best gaze (horizontal eye movement): Normal Visual field testing: No visual field loss Facial paresis (Show teeth/raise eyebrows/close eyes tight): Minor paralysis (flattened nasolabial fold, asymmetry on smiling) Motor Function: Left Arm: Normal Motor Function: Right Arm: Drift Motor Function: Left Leg: Normal (extends leg 30 degrees for 5 seconds without drift) Motor Function: Right Leg: Normal (extends leg 30 degrees for 5 seconds without drift) Limb Ataxia: Present in one limb Sensory(Use pinprick test arms,legs,trunk,face/side to side): Normal Best language (Describe picture, name items, read sentences): No Aphasia Dysarthria (read several words): Normal articulation Extinction and Inattention: No abnormality - Total Score NIH Stroke Scale Score: 3 Past History - Medical History Allergies/Adverse Reactions: Allergies Allergy/AdvReac Type Severity Reaction Status Date / Time moxifloxacin HCl Allergy Intermediate Hives Verified 11/14/19 18:54 [From Avelox] iodine Allergy Hives Verified 11/14/19 18:54 contrast dye Allergy Intermediate Hives Uncoded 11/14/19 18:54 Home Medications: Ambulatory Orders Amlodipine Besylate [Norvasc -] 10 mg PO DAILY #30 tablet 02/18/17 Carvedilol [Coreg -] 25 mg PO BID #60 tablet 02/18/17 Chlorthalidone [Hygroton -] 25 mg PO DAILY #30 tablet 02/18/17 Sitagliptin Phosphate [Januvia] 50 mg PO DAILY #30 tablet 02/18/17 Colchicine [Colcrys] 1.2 mg PO PRN PRN 10/09/19 Ergocalciferol [Vitamin D2] 50,000 unit PO WEEKLY 10/09/19 Olmesartan Medoxomil 40 mg PO DAILY 11/16/19 Asthma: Yes (SEASONAL) CVA: No COPD: No Diabetes: Yes HTN: Yes Kidney Stones: Yes - Surgical History Appendectomy: Yes - Immunization History Td Vaccination: No - Psycho-Social/Smoking History Smoking Status: No Smoking History: Never smoked Years of Tobacco Use: 0 Have you smoked in the past 12 months: No Number of Cigarettes Smoked Daily: 0 Information on smoking cessation initiated: No - Substance Abuse Hx (Audit-C & DAST Scrn) How often the patient has a drink containing alcohol: Never Score: In Men: 4 or > Positive; In Women: 3 or > Positive: 0 Screen Result (Pos requires Nsg. Audit-10AR): Negative Review of Systems - Review of Systems Comments:: CONSTITUTIONAL: Denies F / C HEENT: + right sided headache, off balance, tearing of left eye, slurred speech, tongue heaviness, tongue biting. Denies changes in vision / hearing, diplopia, blurry vision RESP: Denies SOB, cough CARD: Denies chest pain GI: Denies N / V / D, abdominal pain : Denies dysuria NEURO: + balance and coordination issue. Denies numbness, tingling, weakness MSK: Denies back pain SKIN: Denies rashes *Physical Exam - Vital Signs Last Vital Signs Temp Pulse Resp BP Pulse Ox 98.1 F 63 20 133/92 98 11/16/19 11:54 11/16/19 11:54 11/16/19 11:54 11/16/19 11:54 11/16/19 11:54 - Physical Exam GEN: NAD, AAOx3. HEENT: NC/AT, CN II-XII grossly intact EXCEPT + asymmetric smile. EOMI, PERRLA, + horizontal nystagmus. Normal voice. Supple neck, FROM, neg TTP midline. NEURO: Moving all extremities well. 5/5 UE strength b/l. 5/5 LE strength b/l. Sensation symmetric and intact throughout. Mild dysmetria of the RUE on FTN though able to hit targets. LUE FTN wnl. Notably LUE FTN motions are much smoother compared to that of the RUE. No abnormality of hand rapid alternating movements. No heel to yen ataxia b/l. Very mild pronator drift of the RUE. On romberg, slightly unsteady but non-lateralizing and maintains upright posture without falling or taking a supportive step. Ambulates w/ relatively normal gait. CV: S1/S2, RRR, no m/r/g LUNG: CTAB, no wheezes, crackles, rales, rhonchi. GI: Soft, ndnt, +BS, no guarding, no rebound. MSK: No obvious deformities of all extremities. SKIN: Warm, dry, no rashes appreciated. PSYCH: tearful, normal mood and affect. Fluent speech, intact comprehension. ED Treatment Course - LABORATORY CBC & Chemistry Diagram: 11/16/19 13:08 11/16/19 13:08 Medical Decision Making - Medical Decision Making 49M PMH HTN, HLD, DM, Migraine headaches, h/o bells palsy presenting with persistence of right sided headaches and discoordination of the right hand with slurred speech, tongue heaviness, and tongue biting. Sx for [address] @ [facility] 11/12/19. Neuro exam today reveals very subtle abnormalities that include mild right sided pronator drift, mild dysmetria of the RUE on FTN with coarse movements, slightly unsteady but nonlateralizing rhomberg. Has an asymmetric smile. DDX - Cerebellar CVA, vertibrobasilar occlusion, complex headache; consider vertebral artery dissection. Unlikely infectious cause. 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 Thomas aware; pt was lost to follow up after 201711/16/19 20:00 critical report of pontine infarct communicated to me by ED team. Hospitalist team made aware. Discharge - Discharge Information Problems reviewed: Yes Clinical Impression/Diagnosis: Right sided weakness Headache Qualifiers: Headache type: unspecified Headache chronicity pattern: unspecified pattern Intractability: not intractable Qualified Code(s): R51.9 - Headache, unspecified Condition: Fair - Follow up/Referral - Patient Discharge Instructions - Post Discharge Activity
--- OUTSIDE RECORDS SUMMARY | 2019-11-16 12:58 | XMS ---
:1970 Author Organization [facility] Support Name Relationship Address Phone VERIZON Unavailable [address] [place] [address] JOSEPH HUMPHREY [phone] [facility] [phone] [place] [address] JOSEPH HUMPHREY Spouse [phone] [place] [address] Re-disclosure Warning The records that you are [...] is protected by Article 27-F of the [facility] Public Health law. If you continue you may haveaccess to information: Regarding HIV / AIDS; Provided by facilities licensed or operated by the [facility] Office of Mental Health; or Provided by the [facility] Office for People With Developmental Disabilities. If such information is present, then the following [facility] mandated warning applies: This information has been [...] law may result in a fine or intermediate sentence or both. A general authorization for the release of medical or other information is NOT sufficient authorization for further disclosure. Insurance Providers Payer name Policy type Policy ID Covered Covered alliance party's Policy P osmin / Coverage alliance party ID relationship to Christopher Inf ormation type christopher LOCAL [id number] - [id number] SP [id number] [facility] BC OUT OF [id number] SP [id number] [place] LOCAL [id number] SP [id number] [facility] Results ID Date Data Source [id number] 09/24/2019 12:00:00 AM EDT [facility] Name Value Range Interpretation Description Data Sup porting Code Source(s) Document(s ) SARS [facility] coronavirus 2 RNA This lab was ordered by [facility] and reported by [facility]. ID Date Data Source [id number] 08/11/2019 12:00:00 AM EDT [facility] Name Value Range Interpretation Code Description Data Chantel rce(s) Supporting Document(s ) 2018-nCoV [facility] RNA XXX LEANNA+probe- Imp This lab was ordered by [facility] Dany JUNIOR and reported by [facility]. ID Date Data Source [id number] 07/02/2019 12:00:00 AM EDT [facility] Name Value Range Interpretation Code Description Data Chantel rce(s) Supporting Document(s ) 2018-nCoV [facility] RNA XXX LEANNA+probe- Imp This lab was ordered by [facility] Dany JUNIOR and reported by [employer] Procedure
[2019-11-16 13:25] LABS: EOS % 1.4 % (0-4.5); HEMATOCRIT 43.8 % (35.4-49); HEMOGLOBIN 14.5 GM/dL (11.7-16.9); LYMPH % 29.8 % (8-40); MCH 27.5 pg (25.7-33.7); MCHC 33.2 g/dl (32.0-35.9); MEAN PLT VOLUME 8.9 fl (7.5-11.1); MONO % 6.5 % (3.8-10.2); NEUT % 61.3 % (42.8-82.8); PLATELET COUNT 254 K/MM3 (134-434); RBC 5.28 M/mm3 (4.00-5.60); WHITE BLOOD COUNT 7.1 K/mm3 (4.0-10.0)
[2019-11-16] MEDS ORDERED: SODIUM CHLORIDE 1,000 ML IV STA (13:25)
[2019-11-16] MEDS ORDERED: METOCLOPRAMIDE HCL INJECTION 10 MG/2 ML VIAL IVPUSH ONE (13:25)
[2019-11-16] MEDS ORDERED: ACETAMINOPHEN 1000 MG/100 ML VIAL (NON FORMULARY) IVPB ONE (13:25)
[2019-11-16] MEDS ORDERED: ACETAMINOPHEN INJECTION 100 ML IVPB ONE (13:29)
[2019-11-16] MEDS ORDERED: METOCLOPRAMIDE HCL INJECTION 10 MG/2 ML VIAL ONE (13:29)
[2019-11-16 13:32] LABS: INR 1.03 (0.83-1.09); PROTHROMBIN TIME (PATIENT) 12.2 SEC (9.7-13.0)
[2019-11-16 13:34] LABS: ACTIVATED PTT 30.8 SECONDS (25.2-36.5)
[2019-11-16] MEDS ORDERED: ASPIRIN 325 MG TABLET PO ONE (13:35)
--- NOTE | 2019-11-16 13:39 | EKG ---
Test Reason : Blood Pressure : / mmHG Vent. Rate : 062 BPM Atrial Rate : 062 BPM P-R Int : 126 ms QRS Dur : 102 ms QT Int : 390 ms P-R-T Axes : 060 -50 089 degrees QTc Int : 395 ms NORMAL SINUS RHYTHM POSSIBLE LEFT ATRIAL ENLARGEMENT LEFT ANTERIOR FASCICULAR BLOCK LEFT VENTRICULAR HYPERTROPHY ABNORMAL ECG WHEN COMPARED WITH ECG OF 14-NOV-2019 18:53, T WAVE INVERSION LESS EVIDENT IN LATERAL LEADS Confirmed by Zeke Lang MD ([id number]) on 11/16/2019 1:38:58 PM Referred By: Confirmed By:Zeke Lang MD
--- NOTE | 2019-11-16 13:43 | PDOC ---
Attending Attestation - Resident Resident Name: Christian Cote - ED Attending Attestation I have performed the following: I have examined & evaluated the patient, The case was reviewed & discussed with the resident, I agree w/resident's findings & plan - HPI HPI: 11/16/19 13:38 49-year-old male with history of hypertension, diabetes presents for evaluation of 4 days of speech disturbance, unsteadiness, and headache. Symptoms began Friday evening, have been persistent since then, associated with generalized headache of moderate and variable severity, no vision change/nausea/vomiting. reports dysarthric speech, patient reports some slight heaviness of his right arm and discoordination when walking. Seen at [place] [facility] on Friday evening, about 1 day after onset of symptoms, CT at that time was normal and patient was discharged home. Presents today for further evaluation and setting of persistent symptoms. No history of same, had normal stress test in the past, both parents had strokes in their 50s. - Physicial Exam PE: 11/16/19 13:39 Vital signs are within normal limits Well-appearing seated comfortably in stretcher Conversant, no acute distress No audible carotid bruit Heart is regular, lungs are clear, abdomen benign Mild facial asymmetry with weakness on the right, per patient and has new dysarthria but speech is otherwise clear objectively, subtle pronation of right upper extremity, good strength in the legs. - Critical Care Time Total Critical Care Time: 30 Critical Care Statement: The care of this patient involved high complexity decision making to prevent further life threatening deterioration of the patient's condition and/or to evaluate & treat vital organ system(s) failure or risk of failure. - Medical Decision Making 11/16/19 13:40 49-year-old male with risk factors for CVA presents with new subtle right-sided face/arm/leg weakness for 2.5 days, mild headache but with normal CAT scan. Hemodynamically stable here, NIH would be at most 3. Concern for prolonged complex migraine versus CVA. Stroke protocol initiated Aspirin given MRI/MRA Neurology consult Admission Heart Score/ECG Review #1 ECG reviewed & interpreted by me at: 13:12 General ECG Interpretation: Sinus Rhythm, Normal Rate (62), Normal Intervals (qtc 395), No acute ischemic changes NIH Stroke Scale - Last Known Well Date/Time & Onset Date Last Known Well: 11/13/19 (evening) - Initial Evaluation Level of consciousness: Alert Ask patient the month and their age: Answers both correctly Ask patient to open & close eyes; make fist and let go: Obeys both correctly Best gaze (horizontal eye movement): Normal Visual field testing: No visual field loss Facial paresis (Show teeth/raise eyebrows/close eyes tight): Minor paralysis (flattened nasolabial fold, asymmetry on smiling) Motor Function: Left Arm: Normal Motor Function: Right Arm: Drift Motor Function: Left Leg: Normal (extends leg 30 degrees for 5 seconds without drift) Motor Function: Right Leg: Normal (extends leg 30 degrees for 5 seconds without drift) Limb Ataxia: No ataxia Sensory(Use pinprick test arms,legs,trunk,face/side to side): Normal Best language (Describe picture, name items, read sentences): No Aphasia Dysarthria (read several words): Normal articulation Extinction and Inattention: No abnormality - Total Score NIH Stroke Scale Score: 2 Discharge - Discharge Information Problems reviewed: Yes Clinical Impression/Diagnosis: Right sided weakness Headache Qualifiers: Headache type: unspecified Headache chronicity pattern: unspecified pattern Intractability: not intractable Qualified Code(s): R51.9 - Headache, unspecified Condition: Fair - Follow up/Referral Referrals: ON STAFF,NOT [Primary Care Provider] - - Patient Discharge Instructions - Post Discharge Activity tPA Exclusion checklist 3-4.5h - Ineligibility reason(s) Reasons No tPA given: Outside of window - delayed arrival
[2019-11-16 13:54] LABS: ALBUMIN 3.7 g/dl (3.4-5.0); BILIRUBIN,TOTAL 0.3 mg/dL (0.2-1); BLOOD UREA NITROGEN 23.3 mg/dL (7-18); CALCIUM 9.8 mg/dL (8.5-10.1); CREATININE 1.4 mg/dL (0.55-1.3); POTASSIUM 3.8 mmol/L (3.5-5.1); TOT PROT 8.2 g/dl (6.4-8.2)
[2019-11-16] MEDS ORDERED: ASPIRIN 81 MG CHEWABLE TABLETS ONE (14:04)
[2019-11-16] MEDS ORDERED: ATORVASTATIN CA 40 MG TABLET (FP) ONE (14:05)
[2019-11-16 14:36] LABS: EPI CELLS 2 /uL (0-25.1); HYALINE CASTS 1 /uL (0-3.1); URINE APPEARANCE CLEAR; URINE BACTERIA 3 /uL (0-1359); URINE BILIRUBIN NEGATIVE (NEGATIVE); URINE COLOR YELLOW; URINE GLUCOSE (UA) NEGATIVE (NEGATIVE); URINE KETONE NEGATIVE (NEGATIVE); URINE LEUK ESTERASE NEGATIVE (NEGATIVE); URINE NITRITE NEGATIVE (NEGATIVE); URINE PROTEIN 1+ (NEGATIVE); URINE RBC 20 /uL (0-23.9); URINE UROBILINOGEN 0.2 mg/dL (0.2-1.0); URINE WBC 2 /uL (0-25.8)
--- NOTE | 2019-11-16 16:12 | HP ---
CHIEF COMPLAINT: weakness, slurring of speech, headache PCP: HISTORY OF PRESENT ILLNESS: Patient is a 49 year old male with history of hypertension, diabetes mellitus, hyperlipidemia presents with complaint of weakness, slurring of speech and headache. Endorses symptoms began Friday evening. Patient was seen at [facility] Friday evening, and had CT head which failed to reveal acute pathology, and was discharged home. Patient and at bedside endorse worsening of speech slurring, and right sided weakness, with headache at posterior right side of head, which prompted presentation today. Denies similar prior symptoms. Denies subjective fevers, chills, shortness of breath, chest pain, palpitations, abdominal pain, nausea, vomiting, diarrhea, melena, hematochezia, fall, loss of consciousness, or any trauma. ER course was notable for: (1) MRI, MRA (2) (3) Recent Travel: denies PAST MEDICAL HISTORY: hypertension, diabetes mellitus, hyperlipidemia PAST SURGICAL HISTORY: right ankle, knee surgery, appendectomy at 16 years old Family History significant for stroke in both mother and father Social History: Lives with . 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 Independent in activities daily living Smoking: Denies smoking cigarettes Alcohol: Denies alcohol consumption Drugs: Denies illicit drug use Allergies moxifloxacin HCl [From Avelox] Allergy (Intermediate, Verified 11/14/19 18:54) Hives iodine Allergy (Verified 11/14/19 18:54) Hives contrast dye Allergy (Intermediate, Uncoded 11/14/19 18:54) Hives HOME MEDICATIONS: Home Medications Medication Instructions Recorded Amlodipine Besylate [Norvasc -] 10 mg PO DAILY #30 tablet 02/18/17 Carvedilol [Coreg -] 25 mg PO BID #60 tablet 02/18/17 Chlorthalidone [Hygroton -] 25 mg PO DAILY #30 tablet 02/18/17 Sitagliptin Phosphate [Januvia] 50 mg PO DAILY #30 tablet 02/18/17 Colchicine [Colcrys] 1.2 mg PO PRN PRN 10/09/19 Ergocalciferol [Vitamin D2] 50,000 unit PO WEEKLY 10/09/19 Olmesartan Medoxomil 40 mg PO DAILY 11/16/19 REVIEW OF SYSTEMS As per HPI PHYSICAL EXAMINATION Vital Signs - 24 hr 11/16/19 11:54 Temperature 98.1 F Pulse Rate 63 Respiratory 20 Rate Blood Pressure 133/92 O2 Sat by Pulse 98 Oximetry (%) GENERAL: The patient is awake, alert, and fully oriented, in no acute distress. HEAD: Normocephalic, atraumatic. EYES: PERRL, extraocular movements intact, sclera anicteric, conjunctiva clear. ENT: Oropharynx clear, without erythema or exudates. Moist mucous membranes. NECK: Trachea midline, full range of motion. Supple without lymphadenopathy. LUNGS: Breath sounds equal, clear to auscultation bilaterally. No wheezes, no cr ackles. No accessory muscle use. HEART: Regular rate and rhythm. S1, S2 without murmur, rub or gallop. ABDOMEN: Obese abdomen. Soft, nondistended, nontender to light and deep palpation x4 quadrants. No rebound tenderness, no guarding. Normoactive bowel sounds x4 quadrants. No hepatosplenomegaly, no masses appreciated. EXTREMITIES: 2+ radial, dorsalis pedis pulses bilaterally. Warm, well-perfused. No lower extremity edema bilaterally. NEUROLOGICAL: Cranial nerves II through XII grossly intact with exception of slight right sided lip drooping/ nasolabial flattening. Slight slurring of speech noted. Strength bilateral upper and lower extremities grossly equivalent at 5/5. Sensation intact bilaterally. Negative pronator drift bilaterally. Negative dysmetria. PSYCH: Normal mood, normal affect upon my encounter. SKIN: Warm, dry. Laboratory Results - last 24 hr 11/16/19 11/16/19 11/16/19 13:08 13:08 13:08 WBC 7.1 RBC 5.28 Hgb 14.5 Hct 43.8 MCV 83.0 MCH 27.5 MCHC 33.2 RDW 16.0 H Plt Count 254 MPV 8.9 Absolute Neuts (auto) 4.3 Neutrophils % 61.3 D Lymphocytes % 29.8 D Monocytes % 6.5 D Eosinophils % 1.4 D Basophils % 1.0 D Nucleated RBC % 0 PT with INR 12.20 INR 1.03 PTT (Actin FS) 30.8 Sodium 137 Potassium 3.8 Chloride 98 Carbon Dioxide 34 H Anion Gap 4 L BUN 23.3 H Creatinine 1.4 H Est GFR (CKD-EPI)AfAm 67.89 Est GFR (CKD-EPI)NonAf 58.58 Random Glucose 131 H Calcium 9.8 Total Bilirubin 0.3 AST 21 ALT 29 Alkaline Phosphatase 92 Creatine Kinase 360 H Creatine Kinase Index 0.8 CK-MB (CK-2) 3.1 Troponin I 0.05 Total Protein 8.2 Albumin 3.7 Triglycerides 138 Cholesterol 199 Total LDL Cholesterol 142 H HDL Cholesterol 41 Urine Color Urine Appearance Urine pH Ur Specific Orland Urine Protein Urine Glucose (UA) Urine Ketones Urine Blood Urine Nitrite Urine Bilirubin Urine Urobilinogen Ur Leukocyte Esterase Urine WBC (Auto) Urine RBC (Auto) Urine Casts (Auto) U Epithel Cells (Auto) Urine Bacteria (Auto) 11/16/19 14:12 WBC RBC Hgb Hct MCV MCH MCHC RDW Plt Count MPV Absolute Neuts (auto) Neutrophils % Lymphocytes % Monocytes % Eosinophils % Basophils % Nucleated RBC % PT with INR INR PTT (Actin FS) Sodium Potassium Chloride Carbon Dioxide Anion Gap BUN Creatinine Est GFR (CKD-EPI)AfAm Est GFR (CKD-EPI)NonAf Random Glucose Calcium Total Bilirubin AST ALT Alkaline Phosphatase Creatine Kinase Creatine Kinase Index CK-MB (CK-2) Troponin I Total Protein Albumin Triglycerides Cholesterol Total LDL Cholesterol HDL Cholesterol Urine Color Yellow Urine Appearance Clear Urine pH 7.0 D Ur Specific Orland 1.015 Urine Protein 1+ H Urine Glucose (UA) Negative Urine Ketones Negative Urine Blood Negative Urine Nitrite Negative Urine Bilirubin Negative Urine Urobilinogen 0.2 Ur Leukocyte Esterase Negative Urine WBC (Auto) 2 Urine RBC (Auto) 20 Urine Casts (Auto) 1 U Epithel Cells (Auto) 2 Urine Bacteria (Auto) 3 ASSESSMENT/PLAN: Patient is a 49 year old male with history of hypertension, diabetes mellitus, hyperlipidemia presents with complaint of weakness, slurring of speech and headache. CVA -Symptoms concerning for CVA. NIHSS 2 -Noted history of [place] Palsy. May be exacerbated by viral illness. Will obtain Influenza A/B, HSV, and EBV PCR. -Received Aspirin, Atorvastatin in ED. Continue Aspirin 81mg PO daily, Atorvastatin 80mg PO daily. -ED resident discussed with Dr. Thomas. Will obtain MRI, MRA -Obtain cardiac transthoracic ECHO, carotid duplex US -NPO, pending speech, swallow evaluation given slurring of speech and concern for aspiration. -IV Normal saline at 75mL/ hour while NPO -Cardiac telemetry monitoring on Stroke Floor -Fall precautions -Aspiration precautions -Physical therapy evaluation -Neurology evaluation (Dr. Thomas) History of hypertension -Hold home antihypertensives (Chlorthalidone, Olmesartan, Carvedilol, Amlodipine) for now to allow permissive hypertension. CKD -BUN23, Cr 1.4, however noted prior baseline approx 1.5) -Gentle hydration while NPO -Holding Olmesartan, Chlorthalidone to allow for permissive hypertension. -Follow BMP. Consider Nephrology consult if worsening renal function. Diabetes mellitus -HgbA1c -Holding home Januvia -Insulin slidng scale, fingerstick blood glucose monitoring Q6 hours FEN -IV Normal saline at 75mL/ hour while NPO -Follow BMP -NPO, pending speech, swallow evaluation Prophylaxis -Heparin 500units subq TID Disposition Admit to Stroke Floor. Family Medical History Family History: As Documented Visit type - Emergency Visit Emergency Visit: Yes ED Registration Date: 11/16/19 Care time: The patient presented to the Emergency Department on the above date and was hospitalized for further evaluation of their emergent condition. - New Patient This patient is new to me today: Yes Date on this admission: 11/16/19 - Critical Care Critical Care patient: No ATTENDING PHYSICIAN STATEMENT I saw and evaluated the patient. I reviewed the resident's note and discussed the case with the resident. I agree with the resident's findings and plan as documented. SUBJECTIVE: OBJECTIVE: ASSESSMENT AND PLAN:
--- NOTE | 2019-11-16 16:13 | PN.NIHSS ---
NIH Stroke Scale - Last Known Well Date/Time & Onset Date Last Known Well: 11/13/19 - Initial Evaluation Level of consciousness: Alert Ask patient the month and their age: Answers both correctly Ask patient to open & close eyes; make fist and let go: Obeys both correctly Best gaze (horizontal eye movement): Normal Visual field testing: No visual field loss Facial paresis (Show teeth/raise eyebrows/close eyes tight): Minor paralysis (flattened nasolabial fold, asymmetry on smiling) Motor Function: Left Arm: Normal Motor Function: Right Arm: Normal (extends arm 90 (or 45) degrees for 10 seconds without drift Motor Function: Left Leg: Normal (extends leg 30 degrees for 5 seconds without drift) Motor Function: Right Leg: Normal (extends leg 30 degrees for 5 seconds without drift) Limb Ataxia: No ataxia Sensory(Use pinprick test arms,legs,trunk,face/side to side): Normal Best language (Describe picture, name items, read sentences): No Aphasia Dysarthria (read several words): Mild to moderate slurring of words Extinction and Inattention: No abnormality - Total Score NIH Stroke Scale Score: 2
[2019-11-16] MEDS ORDERED: SODIUM CHLORIDE 1,000 ML IV SCH (16:15)
--- OUTSIDE RECORDS SUMMARY | 2019-11-16 16:51 | XMS ---
:1970 Author Organization [facility] Support Name Relationship Address Phone VERIZON Unavailable [address] [place] [address] JOSEPH HUMPHREY [address] [facility] [place] [address] JOSEPH HUMPHREY Spouse [phone] [place] [address] Re-disclosure Warning The records that you are [...] is protected by Article 27-F of the [facility] Public Health law. If you continue you may haveaccess to information: Regarding HIV / AIDS; Provided by facilities licensed or operated by the [facility] Office of Mental Health; or Provided by the [facility] Office for People With Developmental Disabilities. If such information is present, then the following [facility] mandated warning applies: This information has been [...] law may result in a fine or penitentiary sentence or both. A general authorization for the release of medical or other information is NOT sufficient authorization for further disclosure. Insurance Providers Payer name Policy type Policy ID Covered Covered constitution party's Policy P osmin / Coverage constitution party ID relationship to Christopher Inf ormation type christopher BC OUT OF [id number] SP [id number] [facility] [id number] - [id number] SP [id number] [facility] LOCAL [id number] - [id number] SP [id number] [facility] Results ID Date Data Source [id number] 09/24/2019 12:00:00 AM EDT [facility] Name Value Range Interpretation Description Data Sup porting Code Source(s) Document(s ) SARS [facility] coronavirus 2 RNA This lab was ordered by [facility] and reported by [email or web address]. ID Date Data Source [id number] 08/11/2019 12:00:00 AM EDT [facility] Name Value Range Interpretation Code Description Data Chantel rce(s) Supporting Document(s ) 2018-nCoV [facility] RNA XXX LEANNA+probe- Imp This lab was ordered by [facility] Dany JUNIOR and reported by [email or web address]. ID Date Data Source [id number] 07/02/2019 12:00:00 AM EDT [facility] Name Value Range Interpretation Code Description Data Chantel rce(s) Supporting Document(s ) 2018-nCoV [facility] RNA XXX LEANNA+probe- Imp This lab was ordered by [facility] Dany JUNIOR and reported by [employer] Procedure
[2019-11-16] MEDS ORDERED: diazePAM CARPU-JECT 10 MG/2 ML DISP.SYRIN IVPUSH ONE (17:07)
[2019-11-16] MEDS ORDERED: diazePAM CARPU-JECT 10 MG/2 ML DISP.SYRIN ONE (17:25)
[2019-11-16] MEDS: INSULIN SLIDING SCALE (NOVOLOG) 1 VIAL SQ SCH (17:35)
[2019-11-16] MEDS ORDERED: HEPARIN NA (PORCINE) 5,000 UNITS/ML 1ML VIAL ONE (22:14)
[2019-11-16] MEDS: HEPARIN NA (PORCINE) 5,000 UNITS/ML 1ML VIAL SQ SCH (22:20)
--- NOTE | 2019-11-16 23:37 | PN ---
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 Both posterior cerebral and superior cerebellar arteries appear unremarkable. Assessment Mr. Pal Harvey is a 49 year old man with PMH uncontrolled hypertension, diabetes, CKD, presenting with slurred speech, dysarthria that began >48 h ago, admitted with lacunar infarct vs. complex migraine, and imaging revealing a left pontine acute infarct measuring 2 x 1.3 cm Plan - Begin DAPT with Clopidogrel 75 mg and Aspirin 81 for 6 months - Begin high intensity statin - Strict BP control with goal BP <120/80 - Speech and swallow evaluation - Strict glycemic control Case discussed with Dr. Thomas
[2019-11-17] MEDS ORDERED: ASPIRIN 81 MG CHEWABLE TABLETS ONE (00:19)
[2019-11-17] MEDS ORDERED: ATORVASTATIN CA 40 MG TABLET (FP) ONE (00:19)
[2019-11-17] MEDS ORDERED: CLOPIDOGREL BISULFATE 75 MG TABLET (FP) ONE ×2 (00:20→09:10)
[2019-11-17] MEDS: ASPIRIN 81 MG CHEWABLE TABLETS PO SCH ×2 (00:22→09:29)
[2019-11-17] MEDS: CLOPIDOGREL BISULFATE 75 MG TABLET (FP) PO SCH ×2 (00:23→09:30)
[2019-11-17] MEDS ORDERED: ATORVASTATIN CA 40 MG TABLET (FP) PO ONE (00:30)
[2019-11-17] MEDS ORDERED: amLODIPine BESYLATE 5 MG TABLET (FP) ONE ×2 (01:08→09:09)
[2019-11-17] MEDS: amLODIPine BESYLATE 5 MG TABLET (FP) PO SCH ×2 (01:11→09:30)
[2019-11-17 03:51] LABS: EPI CELLS 0 /uL (0-25.1); HYALINE CASTS 0 /uL (0-3.1); PH,URINE 5.5 (5.0-8.0); URINE APPEARANCE CLEAR; URINE BACTERIA 2 /uL (0-1359); URINE BILIRUBIN NEGATIVE (NEGATIVE); URINE COLOR YELLOW; URINE GLUCOSE (UA) NEGATIVE (NEGATIVE); URINE KETONE NEGATIVE (NEGATIVE); URINE LEUK ESTERASE NEGATIVE (NEGATIVE); URINE NITRITE NEGATIVE (NEGATIVE); URINE PROTEIN 1+ (NEGATIVE); URINE RBC 10 /uL (0-23.9); URINE UROBILINOGEN 0.2 mg/dL (0.2-1.0); URINE WBC 3 /uL (0-25.8)
[2019-11-17] MEDS ORDERED: ACETAMINOPHEN 325 MG TABLET (FP) PO ONE (04:13)
[2019-11-17] MEDS ORDERED: HEPARIN NA (PORCINE) 5,000 UNITS/ML 1ML VIAL ONE ×2 (06:34→14:16)
[2019-11-17] MEDS: HEPARIN NA (PORCINE) 5,000 UNITS/ML 1ML VIAL SQ SCH ×3 (06:42→22:24)
[2019-11-17 06:54] LABS: ALBUMIN 3.7 g/dl (3.4-5.0); BILIRUBIN,TOTAL 0.4 mg/dL (0.2-1); BLOOD UREA NITROGEN 20.8 mg/dL (7-18); CALCIUM 9.6 mg/dL (8.5-10.1); CREATININE 1.3 mg/dL (0.55-1.3); MAGNESIUM 1.8 mg/dL (1.8-2.4); POTASSIUM 3.6 mmol/L (3.5-5.1); TOT PROT 7.9 g/dl (6.4-8.2)
[2019-11-17] MEDS: INSULIN SLIDING SCALE (NOVOLOG) 1 VIAL SQ SCH ×3 (08:08→17:30)
[2019-11-17] MEDS: CARVEDILOL 25 MG TABLET (FP) PO SCH ×2 (08:35→22:24)
[2019-11-17] MEDS ORDERED: ASPIRIN COATED 81 MG TABLET.EC ONE (09:09)
[2019-11-17] MEDS ORDERED: CARVEDILOL 12.5 MG TABLET (FP) ONE (09:10)
[2019-11-17] MEDS: ASPIRIN COATED 81 MG TABLET.EC PO SCH (09:29)
--- NOTE | 2019-11-17 10:04 | CONSULT ---
Admitting History and Physical - Admission History of Present Illness: 49 year old male with history of hypertension, diabetes mellitus, hyperlipidemia presents with complaint of weakness, slurring of speech and headache. Endorses symptoms began Friday evening. Patient was seen at [facility] Friday evening, and had CT head which failed to reveal acute pathology, and was discharged home. Patient and at bedside endorse worsening of speech slurring, and right sided weakness, with headache at posterior right side of head Selected Entries 11/17/19 11/17/19 11/17/19 01:48 03:36 06:30 Temperature 98.1 F Pulse Rate [ 62 Apical] Pulse Rate [ 61 59 L Left Radial] Respiratory 16 16 18 Rate Respiratory Normal Normal Depth Respiratory Non-Labored Non-Labored Effort Blood Pressure 166/111 H 156/101 H 161/111 H [Left Arm] Blood Pressure [Right Arm] O2 Sat by Pulse 100 98 98 Oximetry (%) Oxygen Delivery Room Air Room Air Method 11/17/19 11/17/19 11/17/19 08:30 09:00 09:05 Temperature Pulse Rate [ 63 62 64 Apical] Pulse Rate [ Left Radial] Respiratory 16 21 H 17 Rate Respiratory Depth Respiratory Non-Labored Effort Blood Pressure 159/107 H [Left Arm] Blood Pressure 152/91 157/113 H [Right Arm] O2 Sat by Pulse 100 100 100 Oximetry (%) Oxygen Delivery Room Air Room Air Room Air Method Laboratory Tests 11/16/19 11/16/19 11/16/19 05:50 05:50 13:08 WBC 7.1 COVID-19 (LEANNA) EBV DNA (PCR) Pending HSV I DNA Quant (PCR) Pending HSV II DNA Quant (PCR) Pending Influenza A (Rapid) Influenza B (Rapid) 11/17/19 11/17/19 11/17/19 00:15 00:15 05:50 WBC Pending COVID-19 (LEANNA) Pending EBV DNA (PCR) HSV I DNA Quant (PCR) HSV II DNA Quant (PCR) Influenza A (Rapid) Negative Influenza B (Rapid) Negative Passed Dysphagia screen. Reg diet/thin liquids ordered. No difficulty swallowing reported, however, pt reports changes in speech production. 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 Both posterior cerebral and superior cerebellar arteries appear unremarkable.) - General Mental Status: Alert and Oriented, Awake and Alert, Able to Follow Commands Attention: Intact Ability to Follow Directions: Excellent Head/Neck Control: WFL - Hearing Hearing: Functional Speech Evaluation - Communication Primary Language: KHMER Communication: Yes: Dysarthria Oral Expression Ability: Yes: Mild Impairment - Speech Production Intelligibility: Yes: Mildly Impaired - Speech Characteristics Voice Loudness: Normal Voice Pitch: Yes: Normal Voice Phonatory-based Quality: Yes: Normal Speech Clarity: < 100% Nasal Resonance: Normal Articulation: Yes: Imprecise (Intelligibility of speech is slight to mildly impaired when speaking at normal rate. When speaking slowly, and exaggerating pronunciation, speech intelligibility is unimpaired) Rate of Speech: Too Slow (slight. Pt feels speech precision and rate is significant, unable to speech rapidly with natural accent.) - Language/Auditory Comprehension Follows: Yes: 2 Stage Simple Commands Observation: Able to respond to yes/no queries: Yes, Comprehends Conversational Speech: Yes - Language/Verbal Expression Able to Respond to Simple Queries: Yes: WNL Able to Communicate Wants and Needs: Yes: WNL Functional Communication Status: Yes: WNL, Mildly Impaired - Swallow Evaluation/Bedside Assessment Current Nutritional Intake: Regular, Thin Liquids Oral Secretions: Yes: WFL Dentition: Yes: Adequate Facial Symmetry at Rest: Symmetrical, Facial Droop Right (slight?) Facial Symmetry on Retraction: Symmetrical Facial Movement: Controlled Sensation: Normal Against Resistance Opening: Normal Against Resistance Closing: Normal Pucker Lips: Normal Smile: Normal Lingual Movement: Normal, Symmetric Lingual Speed of Movement: Normal Lingual Movement Strgth Against Opposition: Normal Lingual Movement Characteristics: Normal Laryngeal Elevation: WFL Laryngeal Movement: Able to Palpate Rate of Intake: WFL Bolus Size: WFL Labial Seal: WFL Chewing: WFL Oral Prep Time: WFL A-P Transit: WFL Pocketing: None Timing of Swallow: WFL Coughing/Throat Clear: No Change in Voice: No Recommendations - Speech Evaluation, Impression/Plan Impression: Intelligibility of speech is slight to mildly impaired when speaking at normal rate. When speaking slowly, and exaggerating pronunciation, speech intelligibility is unimpaired. Swallowing overtly intact - Disposition Discharge to: To be Determined - Dysphagia Impressions/Plan Swallowing Skills: WF Dysphagia Impressions: No Impairment, Ongoing Evaluation *Silent aspiration: cannot be R/O at bedside Dysphagia Treatment Plan: OOB for meals, OOB for 1 h. after meals, Other (monitor tolerance) Recommendations: Modified Barium Swallow (if difficulty observed or reported) - Recommendations Diet Consistency: Regular Medication Administration: Whole with water Liquids: Thin Liquids
[2019-11-17 10:09] LABS: BASO % 0.3 % (0-2.0); EOS % 1.6 % (0-4.5); HEMATOCRIT 46.8 % (35.4-49); HEMOGLOBIN 15.2 GM/dL (11.7-16.9); LYMPH % 32.7 % (8-40); MCH 27.5 pg (25.7-33.7); MCHC 32.5 g/dl (32.0-35.9); MEAN CELL VOLUME 84.6 fl (80-96); MEAN PLT VOLUME 9.4 fl (7.5-11.1); MONO % 5.9 % (3.8-10.2); NEUT % 59.5 % (42.8-82.8); PLATELET COUNT 254 K/MM3 (134-434); RBC 5.53 M/mm3 (4.00-5.60); RDW 16.3 % (11.9-15.9); WHITE BLOOD COUNT 7.6 K/mm3 (4.0-10.0)
--- NOTE | 2019-11-17 12:08 | ECHO ---
Name: HUMPHREYDIEGO ARAMBULA Exam:Adult Echocardiogram Study Date: 11/17/2019 10:38 AM Age: 49 yrs Reason For Study: CVA Height: 67 in Weight: 244 lb BSA: 2.2 m2 MMode/2D Measurements & Calculations IVSd: 1.5 cm Ao root diam: 3.4 cm LVIDd: 4.2 cm LA dimension: 4.9 cm LVIDs: 2.8 cm ACS: 1.9 cm LVPWd: 1.6 cm LVPWs: 1.9 cm EDV(Teich): 76.8 ml ESV(Teich): 29.3 ml LVOT diam: 2.1 cm LAV (MOD-bp): 58.0 ml TAPSE: 2.4 cm RV S Scottie: 13.3 cm/sec Doppler Measurements & Calculations MV E max scottie: 61.5 cm/sec Ao V2 max: 133.0 cm/sec MV A max scottie: 61.2 cm/sec Ao max P.1 mmHg MV E/A: 1.0 Ao V2 mean: 85.8 cm/sec MV dec time: 0.17 sec Ao mean P.4 mmHg Ao V2 VTI: 24.2 cm CHARLIE(I,D): 2.8 cm2 CHARLIE(V,D): 2.6 cm2 LV V1 max P.8 mmHg SV(LVOT): 68.9 ml LV V1 mean P.9 mmHg LV V1 max: 97.2 cm/sec LV V1 mean: 63.8 cm/sec LV V1 VTI: 19.1 cm TV V2 max: 214.5 cm/sec PA V2 max: 89.6 cm/sec TV max P.4 mmHg PA max P.2 mmHg Med Peak E' Scottie: 7.2 cm/sec Med E/e': 8.5 Lat Peak E' Scottie: 6.6 cm/sec Lat E/e': 9.3 Procedure A complete two-dimensional transthoracic echocardiogram was performed (2D, M-mode, Doppler and color flow Doppler). A saline contrast injection was performed to assess for cardiac shunting. Left Ventricle The left ventricular size, thickness and function are normal. Ejection Fraction = 60%. E/A reversal c onsistent with but not diagnostic of poor LV compliance. The left ventricular wall motion is normal. Right Ventricle The right ventricle is normal in size and function. Atria The left atrium is moderately dilated. Right atrial size is normal. Injection of contrast documented no interatrial shunt. Mitral Valve The mitral valve is normal in structure and function. There is trace mitral regurgitation. Tricuspid Valve The tricuspid valve is normal in structure and function. There is trace tricuspid regurgitation. Righ t ventricular systolic pressure is 23 mmhg. Aortic Valve The aortic valve is normal in structure and function. Pulmonic Valve The pulmonic valve is normal in structure and function. Great Vessels The aortic root is normal size. Pericardium/Pleura There is no pericardial effusion. There is no pleural effusion. Interpretation Summary A complete two-dimensional transthoracic echocardiogram was performed (2D, M-mode, Doppler and color flow Doppler). A saline contrast injection was performed to assess for cardiac shunting. The left ventricular size, thickness and function are normal Ejection Fraction = 60%. The left atrium is moderately dilated. There is trace mitral regurgitation. There is trace tricuspid regurgitation. Right ventricular systolic pressure is 23 mmhg. Injection of contrast documented no interatrial shunt. MD Zeke Lang 11/17/2019 12:08 PM
--- NOTE | 2019-11-17 13:11 | PN ---
Teaching Attending Note Name of Resident: Bernardo Briggs ATTENDING PHYSICIAN STATEMENT I saw and evaluated the patient. I reviewed the resident's note and discussed the case with the resident. I agree with the resident's findings and plan as documented. SUBJECTIVE: Feeling well, mild residual headache - no visual disturbance, limb numbness or weakness. No visual disturbance. No fever/chills/neck stiffness/photophobia. OBJECTIVE: Afebrile, Hypertensive. Last Vital Signs Temp Pulse Resp BP Pulse Ox 98.1 F 64 17 157/113 H 100 11/17/19 06:30 11/17/19 09:05 11/17/19 09:05 11/17/19 09:05 11/17/19 09:05 HEENT - Atraumatic, Normocephalic Heart - S1, S2, RRR Lungs - clear to auscultation Abdomen - High BMI, Soft, non-tender. Bowel Sounds normal. Extremities - no calf tenderness. Neuro - AAO x 3. R partial facial nerve weakness. Tone/Power normal all extremities. Laboratory Results - last 24 hr 11/16/19 11/16/19 11/16/19 13:08 13:08 13:08 WBC 7.1 RBC 5.28 Hgb 14.5 Hct 43.8 MCV 83.0 MCH 27.5 MCHC 33.2 RDW 16.0 H Plt Count 254 MPV 8.9 Absolute Neuts (auto) 4.3 Neutrophils % 61.3 D Lymphocytes % 29.8 D Monocytes % 6.5 D Eosinophils % 1.4 D Basophils % 1.0 D Nucleated RBC % 0 PT with INR 12.20 INR 1.03 PTT (Actin FS) 30.8 Sodium 137 Potassium 3.8 Chloride 98 Carbon Dioxide 34 H Anion Gap 4 L BUN 23.3 H Creatinine 1.4 H Est GFR (CKD-EPI)AfAm 67.89 Est GFR (CKD-EPI)NonAf 58.58 POC Glucometer Random Glucose 131 H Hemoglobin A1c % Calcium 9.8 Phosphorus Magnesium Total Bilirubin 0.3 AST 21 ALT 29 Alkaline Phosphatase 92 Creatine Kinase 360 H Creatine Kinase Index 0.8 CK-MB (CK-2) 3.1 Troponin I 0.05 Total Protein 8.2 Albumin 3.7 Triglycerides 138 Cholesterol 199 Total LDL Cholesterol 142 H HDL Cholesterol 41 TSH Urine Color Urine Appearance Urine pH Ur Specific Tow Urine Protein Urine Glucose (UA) Urine Ketones Urine Blood Urine Nitrite Urine Bilirubin Urine Urobilinogen Ur Leukocyte Esterase Urine WBC (Auto) Urine RBC (Auto) Urine Casts (Auto) U Epithel Cells (Auto) Urine Bacteria (Auto) Influenza A (Rapid) Influenza B (Rapid) 11/16/19 11/16/19 11/17/19 14:12 17:31 00:15 WBC RBC Hgb Hct MCV MCH MCHC RDW Plt Count MPV Absolute Neuts (auto) Neutrophils % Lymphocytes % Monocytes % Eosinophils % Basophils % Nucleated RBC % PT with INR INR PTT (Actin FS) Sodium Potassium Chloride Carbon Dioxide Anion Gap BUN Creatinine Est GFR (CKD-EPI)AfAm Est GFR (CKD-EPI)NonAf POC Glucometer 142 Random Glucose Hemoglobin A1c % Calcium Phosphorus Magnesium Total Bilirubin AST ALT Alkaline Phosphatase Creatine Kinase Creatine Kinase Index CK-MB (CK-2) Troponin I Total Protein Albumin Triglycerides Cholesterol Total LDL Cholesterol HDL Cholesterol TSH Urine Color Yellow Urine Appearance Clear Urine pH 7.0 D Ur Specific Tow 1.015 Urine Protein 1+ H Urine Glucose (UA) Negative Urine Ketones Negative Urine Blood Negative Urine Nitrite Negative Urine Bilirubin Negative Urine Urobilinogen 0.2 Ur Leukocyte Esterase Negative Urine WBC (Auto) 2 Urine RBC (Auto) 20 Urine Casts (Auto) 1 U Epithel Cells (Auto) 2 Urine Bacteria (Auto) 3 Influenza A (Rapid) Negative Influenza B (Rapid) Negative 11/17/19 11/17/19 11/17/19 03:30 05:50 05:50 WBC RBC Hgb Hct MCV MCH MCHC RDW Plt Count MPV Absolute Neuts (auto) Neutrophils % Lymphocytes % Monocytes % Eosinophils % Basophils % Nucleated RBC % PT with INR INR PTT (Actin FS) Sodium 137 Potassium 3.6 Chloride 98 Carbon Dioxide 34 H Anion Gap 5 L BUN 20.8 H Creatinine 1.3 Est GFR (CKD-EPI)AfAm 74.26 Est GFR (CKD-EPI)NonAf 64.07 POC Glucometer Random Glucose 111 H Hemoglobin A1c % 6.8 H Calcium 9.6 Phosphorus 4.0 Magnesium 1.8 Total Bilirubin 0.4 AST 19 ALT 26 Alkaline Phosphatase 87 Creatine Kinase Creatine Kinase Index CK-MB (CK-2) Troponin I Total Protein 7.9 Albumin 3.7 Triglycerides 135 Cholesterol 207 H Total LDL Cholesterol 157 H HDL Cholesterol 40 TSH 0.96 D Urine Color Yellow Urine Appearance Clear Urine pH 5.5 D Ur Specific Tow 1.018 Urine Protein 1+ H Urine Glucose (UA) Negative Urine Ketones Negative Urine Blood Trace Urine Nitrite Negative Urine Bilirubin Negative Urine Urobilinogen 0.2 Ur Leukocyte Esterase Negative Urine WBC (Auto) 3 Urine RBC (Auto) 10 Urine Casts (Auto) 0 U Epithel Cells (Auto) 0 Urine Bacteria (Auto) 2 Influenza A (Rapid) Influenza B (Rapid) 11/17/19 11/17/19 11/17/19 05:50 08:00 12:24 WBC 7.6 RBC 5.53 Hgb 15.2 Hct 46.8 MCV 84.6 MCH 27.5 MCHC 32.5 RDW 16.3 H Plt Count 254 MPV 9.4 Absolute Neuts (auto) 4.5 Neutrophils % 59.5 Lymphocytes % 32.7 Monocytes % 5.9 Eosinophils % 1.6 Basophils % 0.3 Nucleated RBC % 0 PT with INR INR PTT (Actin FS) Sodium Potassium Chloride Carbon Dioxide Anion Gap BUN Creatinine Est GFR (CKD-EPI)AfAm Est GFR (CKD-EPI)NonAf POC Glucometer 109 110 Random Glucose Hemoglobin A1c % Calcium Phosphorus Magnesium Total Bilirubin AST ALT Alkaline Phosphatase Creatine Kinase Creatine Kinase Index CK-MB (CK-2) Troponin I Total Protein Albumin Triglycerides Cholesterol Total LDL Cholesterol HDL Cholesterol TSH Urine Color Urine Appearance Urine pH Ur Specific Tow Urine Protein Urine Glucose (UA) Urine Ketones Urine Blood Urine Nitrite Urine Bilirubin Urine Urobilinogen Ur Leukocyte Esterase Urine WBC (Auto) Urine RBC (Auto) Urine Casts (Auto) U Epithel Cells (Auto) Urine Bacteria (Auto) Influenza A (Rapid) Influenza B (Rapid) Current Medications Generic Name Dose Route Start Last Admin Trade Name Blaise PRN Reason Stop Dose Admin Amlodipine Besylate 10 mg 11/17/19 00:30 11/17/19 09:30 Norvasc - PO Not Given DAILY [facility] Aspirin 81 mg 11/17/19 10:00 11/17/19 09:29 Ecotrin - PO Not Given DAILY [facility] Aspirin 81 mg 11/17/19 00:00 11/17/19 09:29 Asa - PO Not Given DAILY [facility] Atorvastatin Calcium 80 mg 11/17/19 22:00 Lipitor - PO HS [facility] Carvedilol 25 mg 11/17/19 10:00 11/17/19 08:35 Coreg - PO 25 mg BID [facility] Administration Chlorthalidone 25 mg 11/18/19 10:00 Hygroton - PO DAILY [facility] Clopidogrel Bisulfate 75 mg 11/17/19 00:30 11/17/19 09:30 Plavix - PO Not Given DAILY [facility] Heparin Sodium (Porcine) 5,000 unit 11/16/19 22:00 11/17/19 06:42 Heparin - SQ 5,000 unit TID [facility] Administration Insulin Aspart 1 vial 11/16/19 16:30 11/17/19 08:08 Novolog Vial Sliding Scale - SQ Not Given TIDAC [facility] Protocol Non-Formulary Medication 40 mg 11/18/19 10:00 Olmesartan Medoxomil [Olmesartan Medoxomil] PO DAILY [facility] Home Medications Medication Instructions Recorded Amlodipine Besylate [Norvasc -] 10 mg PO DAILY #30 tablet 02/18/17 Carvedilol [Coreg -] 25 mg PO BID #60 tablet 02/18/17 Chlorthalidone [Hygroton -] 25 mg PO DAILY #30 tablet 02/18/17 Sitagliptin Phosphate [Januvia] 50 mg PO DAILY #30 tablet 02/18/17 Colchicine [Colcrys] 1.2 mg PO PRN PRN 10/09/19 Ergocalciferol [Vitamin D2] 50,000 unit PO WEEKLY 10/09/19 Olmesartan Medoxomil 40 mg PO DAILY 11/16/19 ASSESSMENT AND PLAN: 49 year old male with history of HTN, DM 2, CKD 3, history of L sided Linn's Palsy, presents with 3 day history of generalized weakness, slurring of speech, headache, initially presented to [place] 3 days ago and had a negative CT head at that point. 1. Acute CVA - residual partial L facial droop MRI - L pontine acute infarct;large retention cyst vs polyp Neurologically stable. Hypertensive - requires tight BP control, now >72 hours since symptom onset ECG - SR Telemonitoring overnight Aspirin/Statin for secondary prevention. LDL 157, well above target. Echo with bubble study ordered. See by Speech - cleared for regular consistency diet Neurology evaluation Neurochecks 2. HTN - uncontrolled, resume Chlorthalidone, Olmesartan, Carvedilol, Amlodipine 3. CKD 3 - Stable. 4. DM 2, A1C 6.8 Januvia held. Maintain on Novolog sliding scale. DVT Px - Heparin SQ
--- NOTE | 2019-11-17 14:48 | PN ---
Physical Exam: SUBJECTIVE: Patient seen and examined at bedside. No acute events overnight. OBJECTIVE: Vital Signs Period Temp Pulse Resp BP Sys/Castillo Pulse Ox Last 24 Hr 98.1 F 59-67 12-21 128-166/81-113 97-100 GENERAL: AAOx3, in no acute distress HEENT: NCAT, PERRLA, EOMI, sclera anicteric, conjunctiva clear, oropharynx clear w/o exudates. MMM. NECK: Normal ROM, supple, no lymphadenopathy, JVD, or masses LUNGS: CTABL no wheezes/ rhonchi/ rales. No distress, speaks in full sentences. No increased work of breathing. HEART: RRR, normal S1 S2, no M/R/G, peripheral pulses 2+ and equal b/l ABDOMEN: Soft, NTND, + BS. No guarding or rebound. No hepatomegaly or splenomegaly. MSK: ROM WNL EXTREMITIES: Normal inspection. No peripheral edema. No clubbing or cyanosis. NEUROLOGICAL: R partial facial nerve weakness. slight right sided lip drooping/ nasolabial flattening. Slight slurring of speech noted. Normal speech, normal gait, no focal sensorimotor deficits. SKIN: Warm, Dry, normal turgor, no rashes or lesions noted Laboratory Results - last 24 hr CBC, BMP 11/17/19 05:50 11/17/19 05:50 11/16/19 11/16/19 11/17/19 13:08 17:31 00:15 WBC RBC Hgb Hct MCV MCH MCHC RDW Plt Count MPV Absolute Neuts (auto) Neutrophils % Lymphocytes % Monocytes % Eosinophils % Basophils % Nucleated RBC % Sodium 137 Potassium 3.8 Chloride 98 Carbon Dioxide 34 H Anion Gap 4 L BUN 23.3 H Creatinine 1.4 H Est GFR (CKD-EPI)AfAm 67.89 Est GFR (CKD-EPI)NonAf 58.58 POC Glucometer 142 Random Glucose 131 H Hemoglobin A1c % Calcium 9.8 Phosphorus Magnesium Total Bilirubin 0.3 AST 21 ALT 29 Alkaline Phosphatase 92 Creatine Kinase 360 H Creatine Kinase Index 0.8 CK-MB (CK-2) 3.1 Troponin I 0.05 Total Protein 8.2 Albumin 3.7 Triglycerides 138 Cholesterol 199 Total LDL Cholesterol 142 H HDL Cholesterol 41 TSH Urine Color Urine Appearance Urine pH Ur Specific [place] Urine Protein Urine Glucose (UA) Urine Ketones Urine Blood Urine Nitrite Urine Bilirubin Urine Urobilinogen Ur Leukocyte Esterase Urine WBC (Auto) Urine RBC (Auto) Urine Casts (Auto) U Epithel Cells (Auto) Urine Bacteria (Auto) Influenza A (Rapid) Negative Influenza B (Rapid) Negative 11/17/19 11/17/19 11/17/19 03:30 05:50 05:50 WBC RBC Hgb Hct MCV MCH MCHC RDW Plt Count MPV Absolute Neuts (auto) Neutrophils % Lymphocytes % Monocytes % Eosinophils % Basophils % Nucleated RBC % Sodium 137 Potassium 3.6 Chloride 98 Carbon Dioxide 34 H Anion Gap 5 L BUN 20.8 H Creatinine 1.3 Est GFR (CKD-EPI)AfAm 74.26 Est GFR (CKD-EPI)NonAf 64.07 POC Glucometer Random Glucose 111 H Hemoglobin A1c % 6.8 H Calcium 9.6 Phosphorus 4.0 Magnesium 1.8 Total Bilirubin 0.4 AST 19 ALT 26 Alkaline Phosphatase 87 Creatine Kinase Creatine Kinase Index CK-MB (CK-2) Troponin I Total Protein 7.9 Albumin 3.7 Triglycerides 135 Cholesterol 207 H Total LDL Cholesterol 157 H HDL Cholesterol 40 TSH 0.96 D Urine Color Yellow Urine Appearance Clear Urine pH 5.5 D Ur Specific [place] 1.018 Urine Protein 1+ H Urine Glucose (UA) Negative Urine Ketones Negative Urine Blood Trace Urine Nitrite Negative Urine Bilirubin Negative Urine Urobilinogen 0.2 Ur Leukocyte Esterase Negative Urine WBC (Auto) 3 Urine RBC (Auto) 10 Urine Casts (Auto) 0 U Epithel Cells (Auto) 0 Urine Bacteria (Auto) 2 Influenza A (Rapid) Influenza B (Rapid) 11/17/19 11/17/19 11/17/19 05:50 08:00 12:24 WBC 7.6 RBC 5.53 Hgb 15.2 Hct 46.8 MCV 84.6 MCH 27.5 MCHC 32.5 RDW 16.3 H Plt Count 254 MPV 9.4 Absolute Neuts (auto) 4.5 Neutrophils % 59.5 Lymphocytes % 32.7 Monocytes % 5.9 Eosinophils % 1.6 Basophils % 0.3 Nucleated RBC % 0 Sodium Potassium Chloride Carbon Dioxide Anion Gap BUN Creatinine Est GFR (CKD-EPI)AfAm Est GFR (CKD-EPI)NonAf POC Glucometer 109 110 Random Glucose Hemoglobin A1c % Calcium Phosphorus Magnesium Total Bilirubin AST ALT Alkaline Phosphatase Creatine Kinase Creatine Kinase Index CK-MB (CK-2) Troponin I Total Protein Albumin Triglycerides Cholesterol Total LDL Cholesterol HDL Cholesterol TSH Urine Color Urine Appearance Urine pH Ur Specific [place] Urine Protein Urine Glucose (UA) Urine Ketones Urine Blood Urine Nitrite Urine Bilirubin Urine Urobilinogen Ur Leukocyte Esterase Urine WBC (Auto) Urine RBC (Auto) Urine Casts (Auto) U Epithel Cells (Auto) Urine Bacteria (Auto) Influenza A (Rapid) Influenza B (Rapid) Active Medications Generic Name Dose Route Start Last Admin Trade Name Freq PRN Reason Stop Dose Admin Amlodipine Besylate 10 mg 11/17/19 00:30 11/17/19 09:30 Norvasc - PO Not Given DAILY [facility] Aspirin 81 mg 11/17/19 10:00 11/17/19 09:29 Ecotrin - PO Not Given DAILY [facility] Aspirin 81 mg 11/17/19 00:00 11/17/19 09:29 Asa - PO Not Given DAILY [facility] Atorvastatin Calcium 80 mg 11/17/19 22:00 Lipitor - PO [facility] Carvedilol 25 mg 11/17/19 10:00 11/17/19 08:35 Coreg - PO 25 mg BID [facility] Administration Chlorthalidone 25 mg 11/18/19 10:00 Hygroton - PO DAILY [facility] Clopidogrel Bisulfate 75 mg 11/17/19 00:30 11/17/19 09:30 Plavix - PO Not Given DAILY [facility] Heparin Sodium (Porcine) 5,000 unit 11/16/19 22:00 11/17/19 14:26 Heparin - SQ 5,000 unit TID [facility] Administration Insulin Aspart 1 vial 11/16/19 16:30 11/17/19 12:24 Novolog Vial Sliding Scale - SQ Not Given TIDAC [facility] Protocol Losartan Potassium 100 mg 11/18/19 10:00 Cozaar - PO DAILY [facility] ASSESSMENT/PLAN: 49 y/o M with PMX of HTN, DM, CKD stage 3, L sided Linn's Palsy, presenting with 3 day history of generalized weakness, slurring of speech, headache, initially presented to [facility] 3 days ago and had a negative CT head at that point. #Acute CVA -MRI: showed L pontine acute infarct and a large retention cyst vs polyp -pt has residual partial L facial droop -Pt is still hypertensive and needs tight BP control -Aspirin/Statin for secondary prevention -Speech and Swallow eval: cleared for regular diet by Chantel Dallas -Neurology consulted; f/u reccs -currently Neurologically stable -Echo w/ bubble study ordered; f/u results -c/w Neurochecks -c/w telemonitoring #HTN - uncontrolled -restarted home med Chlorthalidone -restarted home med Olmesartan -restarted home med Carvedilol -restarted home med Amlodipine #CKD- Stage 3 -Stable -continue to monitor BMP #DM -A1C 6.8 -c/w ISS w/ BGM #FEN -no standing fluids -monitor lytes; replete PRN -diabetic/sodium diet #Ppx -DVT: Heparin SQ dispo: continue to monitor in m/s Visit type - Emergency Visit Emergency Visit: No - New Patient This patient is new to me today: Yes Date on this admission: 11/18/19 - Critical Care Critical Care patient: No - Discharge Referral Referred to [facility] No ATTENDING PHYSICIAN STATEMENT I saw and evaluated the patient. I reviewed the resident's note and discussed the case with the resident. I agree with the resident's findings and plan as documented. SUBJECTIVE: OBJECTIVE: ASSESSMENT AND PLAN:
--- NOTE | 2019-11-17 19:18 | CONSULT ---
Consult - text type - Consultation Consultation Note: NEUROLOGY CONSULTATION is greatly appreciated: Events reviewed and discussed with ED , RN and Mrs. Bardales on the phone. Patient examined. This 49 yo RH m man with h/o HTN, DM, Gout is well known to me for Rx of Migraine Headaches. These resolved on Topiramate and remained improved off meds for > 1 year. Last seen by me on 06/19/17 when his BP was 150/90. Maintained on: Amlodipine 10; Carvedilol 25 mg PO BID; Chlorthalidone 25 mg; Januvia 50 (Pt. didn't take x 3 weeks); Colchicine; and Olmesartan 40 mg. On Friday [employer] a friend noted slurred speech in [place]. On Friday he had right occipital headache and difficulty controlling his car. His took him to [facility] ER where CT of head and blood pressure were normal. He developed unsteady gait and came to our ED on Friday AM. Strong FH of stroke at young ages MRI of brain (reviewed): Left paramedian pontine infarct. MRI/Carotid duplex - unremarkable. Chol= 207; HDL/chol= 157 BP's all in 150-160/90-113 range. Now also on Lipitor, ASA, Clopidogrel DENIA: Obese. No bruits. Cor reg. NEURO: MS/Speech Normal CN's normal except for decreased tongue RONA's, min Left facial droop Motor: No drift. Normal RONA's. Normal reflexes. Toes downgoing Sensory: Normal to vibration, touch, cold on face and body Coord: + Right FTN and HTS dystaxia Gait: Min stiffness left leg IMP: Doing well s/p left Pontine lacunar infarct Migraine headaches SUGGEST: Normalize BP (ie 110-120/70-80) Continue a Beta vannessa for migraine prophylaxis Continue statin Rx and dual antiplatelet rx x first few months. Encourage compliance with Meds, BP checks and provide finger stick materials Neuro f/u as out patient. Thank you very much, Christian Thomas MD
[2019-11-17] MEDS ORDERED: amLODIPine BESYLATE 10 MG TABLET (FP) PO ONE (19:45)
[2019-11-17] MEDS ORDERED: ATORVASTATIN CA 80 MG TABLET (FP) PO SCH (22:00)
[2019-11-18] MEDS: HEPARIN NA (PORCINE) 5,000 UNITS/ML 1ML VIAL SQ SCH ×2 (06:55→14:03)
[2019-11-18] MEDS: INSULIN SLIDING SCALE (NOVOLOG) 1 VIAL SQ SCH ×2 (06:56→11:09)
[2019-11-18 08:14] LABS: ALBUMIN 3.6 g/dl (3.4-5.0); BILIRUBIN,TOTAL 0.8 mg/dL (0.2-1); BLOOD UREA NITROGEN 22.6 mg/dL (7-18); CALCIUM 9.5 mg/dL (8.5-10.1); CREATININE 1.6 mg/dL (0.55-1.3); MAGNESIUM 1.6 mg/dL (1.8-2.4); POTASSIUM 3.5 mmol/L (3.5-5.1); TOT PROT 7.8 g/dl (6.4-8.2)
[2019-11-18] MEDS ORDERED: MAGNESIUM SULF 50% (8.12 MEQ/2 ML-1 GM VIAL) IVPB ONE ×3 (09:00→10:00)
[2019-11-18 09:02] LABS: BASO % 0.7 % (0-2.0); EOS % 1.1 % (0-4.5); HEMATOCRIT 43.9 % (35.4-49); HEMOGLOBIN 14.7 GM/dL (11.7-16.9); LYMPH % 28.8 % (8-40); MCH 27.6 pg (25.7-33.7); MCHC 33.4 g/dl (32.0-35.9); MEAN CELL VOLUME 82.7 fl (80-96); MONO % 7.3 % (3.8-10.2); NEUT % 62.1 % (42.8-82.8); PLATELET COUNT 265 K/MM3 (134-434); RBC 5.31 M/mm3 (4.00-5.60); RDW 16.5 % (11.9-15.9); WHITE BLOOD COUNT 8.3 K/mm3 (4.0-10.0)
[2019-11-18] MEDS ORDERED: POTASSIUM CHLORIDE TABS 20 MEQ TABLET.ER (FP) PO ONE (09:30)
[2019-11-18] MEDS: amLODIPine BESYLATE 5 MG TABLET (FP) PO SCH (09:51)
[2019-11-18] MEDS: ASPIRIN COATED 81 MG TABLET.EC PO SCH (09:51)
[2019-11-18] MEDS: CARVEDILOL 25 MG TABLET (FP) PO SCH (09:51)
[2019-11-18] MEDS: CLOPIDOGREL BISULFATE 75 MG TABLET (FP) PO SCH (09:53)
[2019-11-18] MEDS: ASPIRIN 81 MG CHEWABLE TABLETS PO SCH (09:53)
[2019-11-18] MEDS ORDERED: PATIENT'S OWN MEDICATION (NON-FORMULARY) (Olmesartan Medoxomil [Olmesartan Medoxomil] 40 M PO SCH (10:00)
[2019-11-18] MEDS ORDERED: LOSARTAN POTASSIUM 50 MG TABLET PO SCH (10:00)
[2019-11-18] MEDS ORDERED: CHLORTHALIDONE 25 MG TABLET PO SCH (10:00)
--- NOTE | 2019-11-18 10:18 | PN ---
Progress Note, [employer] - Note Progress Note: Selected Entries 11/17/19 11/17/19 11/17/19 01:48 03:36 06:30 Supper Temperature 98.1 F Pulse Rate Pulse Rate [ 62 Apical] Pulse Rate [ 61 59 L Left Radial] Respiratory 16 16 18 Rate Respiratory Normal Normal Depth Respiratory Non-Labored Non-Labored Effort Blood Pressure Blood Pressure 166/111 H 156/101 H 161/111 H [Left Arm] Blood Pressure [Right Arm] O2 Sat by Pulse 100 98 98 Oximetry (%) Oxygen Delivery Room Air Room Air Method 11/17/19 11/17/19 11/17/19 08:30 09:00 09:05 Supper Temperature Pulse Rate Pulse Rate [ 63 62 64 Apical] Pulse Rate [ Left Radial] Respiratory 16 21 H 17 Rate Respiratory Depth Respiratory Non-Labored Effort Blood Pressure Blood Pressure 159/107 H [Left Arm] Blood Pressure 152/91 157/113 H [Right Arm] O2 Sat by Pulse 100 100 100 Oximetry (%) Oxygen Delivery Room Air Room Air Room Air Method 11/17/19 11/18/19 11/18/19 20:02 02:00 06:00 Supper 100% Temperature 97.7 F 98.1 F Pulse Rate 60 61 Pulse Rate [ Apical] Pulse Rate [ Left Radial] Respiratory Rate Respiratory Depth Respiratory Effort Blood Pressure 145/88 158/98 Blood Pressure [Left Arm] Blood Pressure [Right Arm] O2 Sat by Pulse 98 93 L Oximetry (%) Oxygen Delivery Method Laboratory Tests 11/16/19 11/16/19 11/16/19 05:50 05:50 13:08 WBC 7.1 COVID-19 (LEANNA) EBV DNA (PCR) Pending HSV I DNA Quant (PCR) Pending HSV II DNA Quant (PCR) Pending Influenza A (Rapid) Influenza B (Rapid) 11/17/19 11/17/19 11/17/19 00:15 00:15 05:50 WBC Pending COVID-19 (LEANNA) Pending EBV DNA (PCR) HSV I DNA Quant (PCR) HSV II DNA Quant (PCR) Influenza A (Rapid) Negative Influenza B (Rapid) Negative 11/18/19 07:00 WBC 8.3 COVID-19 (LEANNA) EBV DNA (PCR) HSV I DNA Quant (PCR) HSV II DNA Quant (PCR) Influenza A (Rapid) Influenza B (Rapid) Selected Entries 11/18/19 10:18 Breakfast 75% Diet Tolerated Well
--- NOTE | 2019-11-18 11:49 | PN ---
Teaching Attending Note Name of Resident: Ricky Gomez ATTENDING PHYSICIAN STATEMENT I saw and evaluated the patient. I reviewed the resident's note and discussed the case with the resident. I agree with the resident's findings and plan as documented. SUBJECTIVE: Patient seen and examined at bedside, presents w/ slurred speech and R facial weakness, VSS. OBJECTIVE: GENERAL: The patient is awake, alert, and fully oriented, in no acute distress. HEENT mild flattening of R nasolabial fold, sparing forehead, EOMI, neck supple, dry MM LUNGS: Breath sounds equal, clear to auscultation bilaterally. No wheezes, no crackles. No accessory muscle use. HEART: Regular rate and rhythm. S1, S2 without murmur, rub or gallop. ABDOMEN: Obese abdomen. Soft, nondistended, nontender to light and deep palpation x4 quadrants. No rebound tenderness, no guarding. Normoactive bowel sounds x4 quadrants. No hepatosplenomegaly, no masses appreciated. EXTREMITIES: 2+ radial, dorsalis pedis pulses bilaterally. Warm, well-perfused. No lower extremity edema bilaterally. NEUROLOGICAL: Cranial nerves II through XII grossly intact with exception of R nasolabial flattening. Slight slurring of speech noted. Strength bilateral upper and lower extremities grossly equivalent at 5/5. Sensation intact bilaterally. Negative pronator drift bilaterally. Negative dysmetria. PSYCH: Normal mood, normal affect upon my encounter. SKIN: Warm, dry. Vital Signs (72 hours) 11/16/19 11/16/19 11/16/19 11:54 16:00 20:30 Temperature 98.1 F Pulse Rate 63 Pulse Rate [ 60 Apical] Pulse Rate [ 66 Left Radial] Respiratory 20 18 18 Rate Blood Pressure 133/92 Blood Pressure 148/90 [Left Arm] Blood Pressure 128/81 [Right Arm] O2 Sat by Pulse 98 97 100 Oximetry (%) 11/16/19 11/17/19 11/17/19 22:38 01:48 03:36 Temperature Pulse Rate Pulse Rate [ 63 Apical] Pulse Rate [ 61 59 L Left Radial] Respiratory 16 16 Rate Blood Pressure Blood Pressure 166/111 H 156/101 H [Left Arm] Blood Pressure 166/108 H [Right Arm] O2 Sat by Pulse 100 100 98 Oximetry (%) 10/07/20 10/07/20 10/07/20 06:30 08:30 09:00 Temperature 98.1 F Pulse Rate Pulse Rate [ 62 63 62 Apical] Pulse Rate [ Left Radial] Respiratory 18 16 21 H Rate Blood Pressure Blood Pressure 161/111 H 159/107 H [Left Arm] Blood Pressure 152/91 [Right Arm] O2 Sat by Pulse 98 100 100 Oximetry (%) 11/17/19 11/17/19 11/17/19 09:05 13:38 14:27 Temperature Pulse Rate Pulse Rate [ 64 62 67 Apical] Pulse Rate [ Left Radial] Respiratory 17 12 18 Rate Blood Pressure Blood Pressure 141/95 153/95 [Left Arm] Blood Pressure 157/113 H [Right Arm] O2 Sat by Pulse 100 99 100 Oximetry (%) 11/17/19 11/17/19 11/17/19 16:08 18:00 20:04 Temperature 98.7 F 98.0 F Pulse Rate 67 88 64 Pulse Rate [ Apical] Pulse Rate [ Left Radial] Respiratory 18 19 20 Rate Blood Pressure 158/72 135/73 154/116 H Blood Pressure [Left Arm] Blood Pressure [Right Arm] O2 Sat by Pulse 95 98 Oximetry (%) 11/17/19 11/18/19 11/18/19 22:00 02:00 06:00 Temperature 98.0 F 97.7 F 98.1 F Pulse Rate 61 60 61 Pulse Rate [ Apical] Pulse Rate [ Left Radial] Respiratory 20 18 18 Rate Blood Pressure 140/100 145/88 158/98 Blood Pressure [Left Arm] Blood Pressure [Right Arm] O2 Sat by Pulse 96 98 93 L Oximetry (%) Laboratory Results - last 24 hr 11/17/19 11/17/19 11/17/19 00:15 12:24 17:39 WBC RBC Hgb Hct MCV MCH MCHC RDW Plt Count MPV Absolute Neuts (auto) Neutrophils % Lymphocytes % Monocytes % Eosinophils % Basophils % Nucleated RBC % Sodium Potassium Chloride Carbon Dioxide Anion Gap BUN Creatinine Est GFR (CKD-EPI)AfAm Est GFR (CKD-EPI)NonAf POC Glucometer 110 134 Random Glucose Calcium Phosphorus Magnesium Total Bilirubin AST ALT Alkaline Phosphatase Total Protein Albumin COVID-19 (LEANNA) Not detected 11/18/19 11/18/19 11/18/19 05:29 07:00 07:00 WBC 8.3 RBC 5.31 Hgb 14.7 Hct 43.9 MCV 82.7 MCH 27.6 MCHC 33.4 RDW 16.5 H Plt Count 265 MPV 9.0 Absolute Neuts (auto) 5.2 Neutrophils % 62.1 Lymphocytes % 28.8 Monocytes % 7.3 Eosinophils % 1.1 Basophils % 0.7 Nucleated RBC % 0 Sodium 137 Potassium 3.5 Chloride 98 Carbon Dioxide 33 H Anion Gap 7 L BUN 22.6 H Creatinine 1.6 H Est GFR (CKD-EPI)AfAm 57.77 Est GFR (CKD-EPI)NonAf 49.85 POC Glucometer 130 Random Glucose 110 H Calcium 9.5 Phosphorus 4.0 Magnesium 1.6 L Total Bilirubin 0.8 AST 17 ALT 26 Alkaline Phosphatase 84 Total Protein 7.8 Albumin 3.6 COVID-19 (LEANNA) Home Medications Medication Instructions Recorded Amlodipine Besylate [Norvasc -] 10 mg PO DAILY #30 tablet 02/18/17 Carvedilol [Coreg -] 25 mg PO BID #60 tablet 02/18/17 Chlorthalidone [Hygroton -] 25 mg PO DAILY #30 tablet 02/18/17 Colchicine [Colcrys] 0.6 mg PO BID 10/09/19 Ergocalciferol [Vitamin D2] 50,000 unit PO WEEKLY 10/09/19 Olmesartan Medoxomil 40 mg PO DAILY 11/16/19 Sitagliptin Phosphate [Januvia] 100 mg PO DAILY 11/17/19 Current Medications Generic Name Dose Route Start Last Admin Trade Name Freq PRN Reason Stop Dose Admin Amlodipine Besylate 10 mg 11/17/19 00:30 11/18/19 09:51 Norvasc - PO 10 mg DAILY SANDRO Administration Aspirin 81 mg 11/17/19 10:00 11/18/19 09:51 Ecotrin - PO 81 mg DAILY SANDRO Administration Aspirin 81 mg 11/17/19 00:00 11/18/19 09:53 Asa - PO 81 mg DAILY SANDRO Administration Atorvastatin Calcium 80 mg 11/17/19 22:00 11/17/19 22:24 Lipitor - PO 80 mg HS SANDRO Administration Carvedilol 25 mg 11/17/19 10:00 11/18/19 09:51 Coreg - PO 25 mg BID SANDRO Administration Chlorthalidone 25 mg 11/18/19 10:00 11/18/19 09:53 Hygroton - PO 25 mg DAILY SANDRO Administration Clopidogrel Bisulfate 75 mg 11/17/19 00:30 11/18/19 09:53 Plavix - PO 75 mg DAILY SANDRO Administration Heparin Sodium (Porcine) 5,000 unit 11/16/19 22:00 11/18/19 06:55 Heparin - SQ 5,000 unit TID SANDRO Administration Insulin Aspart 1 vial 11/16/19 16:30 11/18/19 06:56 Novolog Vial Sliding Scale - SQ Not Given [facility] Protocol Losartan Potassium 100 mg 11/18/19 10:00 11/18/19 09:53 Cozaar - PO 100 mg DAILY SANDRO Administration ASSESSMENT AND PLAN: 49 M r/o Acute CVA HTN HLD CAD Plan: ASA/high intensity statin for secondary stroke prevention MRI of brain Serial neuro exams, obtain Carotid US Send EBV/HSV/flu swab to r/o Linn's pathology Permissive HTN Neurology evaluation Admit to tele, obtain Echo Send A1c/lipids/TSH/RPR/B12 DVT ppx: Heparin SC
[2019-11-18 14:09] VITALS: BP 124/73; PULSE 68; TEMP 98.6
--- NOTE | 2019-11-18 14:27 | PN ---
Teaching Attending Note Name of Resident: Bernardo Briggs ATTENDING PHYSICIAN STATEMENT I saw and evaluated the patient. I reviewed the resident's note and discussed the case with the resident. I agree with the resident's findings and plan as documented. SUBJECTIVE: Feeling well, headache resolved - no visual disturbance, limb numbness or weakness. No visual disturbance. No fever/chills/neck stiffness/photophobia. OBJECTIVE: Afebrile, Hemodynamically stable. Last Vital Signs Temp Pulse Resp BP Pulse Ox 98.6 F 68 14 124/73 95 11/18/19 14:08 11/18/19 14:08 11/18/19 14:08 11/18/19 14:08 11/18/19 10:00 HEENT - Atraumatic, Normocephalic, R facial droop Heart - S1, S2, RRR Lungs - clear to auscultation Abdomen - High BMI, Soft, non-tender. Bowel Sounds normal. Extremities - no calf tenderness. Neuro - AAO x 3. R partial facial weakness. Mild reduction in power RUE 4-5/5. Laboratory Results - last 24 hr 11/17/19 11/17/19 11/18/19 00:15 17:39 05:29 WBC RBC Hgb Hct MCV MCH MCHC RDW Plt Count MPV Absolute Neuts (auto) Neutrophils % Lymphocytes % Monocytes % Eosinophils % Basophils % Nucleated RBC % Sodium Potassium Chloride Carbon Dioxide Anion Gap BUN Creatinine Est GFR (CKD-EPI)AfAm Est GFR (CKD-EPI)NonAf POC Glucometer 134 130 Random Glucose Calcium Phosphorus Magnesium Total Bilirubin AST ALT Alkaline Phosphatase Total Protein Albumin COVID-19 (LEANNA) Not detected 11/18/19 11/18/19 07:00 07:00 WBC 8.3 RBC 5.31 Hgb 14.7 Hct 43.9 MCV 82.7 MCH 27.6 MCHC 33.4 RDW 16.5 H Plt Count 265 MPV 9.0 Absolute Neuts (auto) 5.2 Neutrophils % 62.1 Lymphocytes % 28.8 Monocytes % 7.3 Eosinophils % 1.1 Basophils % 0.7 Nucleated RBC % 0 Sodium 137 Potassium 3.5 Chloride 98 Carbon Dioxide 33 H Anion Gap 7 L BUN 22.6 H Creatinine 1.6 H Est GFR (CKD-EPI)AfAm 57.77 Est GFR (CKD-EPI)NonAf 49.85 POC Glucometer Random Glucose 110 H Calcium 9.5 Phosphorus 4.0 Magnesium 1.6 L Total Bilirubin 0.8 AST 17 ALT 26 Alkaline Phosphatase 84 Total Protein 7.8 Albumin 3.6 COVID-19 (LEANNA) Current Medications Generic Name Dose Route Start Last Admin Trade Name Blaise PRN Reason Stop Dose Admin Amlodipine Besylate 10 mg 11/17/19 00:30 11/18/19 09:51 Norvasc - PO 10 mg DAILY SANDRO Administration Aspirin 81 mg 11/17/19 10:00 11/18/19 09:51 Ecotrin - PO 81 mg DAILY SANDRO Administration Aspirin 81 mg 11/17/19 00:00 11/18/19 09:53 Asa - PO 81 mg DAILY SANDRO Administration Atorvastatin Calcium 80 mg 11/17/19 22:00 11/17/19 22:24 Lipitor - PO 80 mg HS SANDRO Administration Carvedilol 25 mg 11/17/19 10:00 11/18/19 09:51 Coreg - PO 25 mg BID SANDRO Administration Chlorthalidone 25 mg 11/18/19 10:00 11/18/19 09:53 Hygroton - PO 25 mg DAILY SANDRO Administration Clopidogrel Bisulfate 75 mg 11/17/19 00:30 11/18/19 09:53 Plavix - PO 75 mg DAILY SANDRO Administration Heparin Sodium (Porcine) 5,000 unit 11/16/19 22:00 11/18/19 14:03 Heparin - SQ 5,000 unit TID [facility] Administration Insulin Aspart 1 vial 11/16/19 16:30 11/18/19 11:09 Novolog Vial Sliding Scale - SQ Not Given TIDAC [facility] Protocol Losartan Potassium 100 mg 11/18/19 10:00 11/18/19 09:53 Cozaar - PO 100 mg DAILY SANDRO Administration Home Medications Medication Instructions Recorded Amlodipine Besylate [Norvasc -] 10 mg PO DAILY #30 tablet 02/18/17 Carvedilol [Coreg -] 25 mg PO BID #60 tablet 02/18/17 Chlorthalidone [Hygroton -] 25 mg PO DAILY #30 tablet 02/18/17 Colchicine [Colcrys] 0.6 mg PO BID 10/09/19 Ergocalciferol [Vitamin D2] 50,000 unit PO WEEKLY 10/09/19 Olmesartan Medoxomil 40 mg PO DAILY 11/16/19 Sitagliptin Phosphate [Januvia] 100 mg PO DAILY 11/17/19 Aspirin [ASA -] 81 mg PO DAILY 30 Days #30 tab.chew 11/18/19 Atorvastatin Ca [Lipitor] 40 mg PO HS #30 tablet 11/18/19 Clopidogrel Bisulfate [Plavix -] 75 mg PO DAILY 30 Days #30 tablet 11/18/19 ASSESSMENT AND PLAN: 49 year old male with history of HTN, DM 2, CKD 3, history of L sided Linn's Palsy, presents with 3 day history of generalized weakness, slurring of speech, headache, initially presented to [facility] days ago and had a negative CT head at that point. 1. Acute CVA - residual partial L facial droop/mild RUE weakness MRI/MRA - L pontine acute infarct;large retention cyst vs polyp Carotid Duplex - R common carotid artery plaque, no hemodynamically significant stenosis. Neurologically stable. ECG - SR No Telemonitoring events Aspirin/Plavix/Statin for secondary prevention as per Neuro. LDL 157, well above target. Echo with bubble study - essentially normal. See by Speech - cleared for regular consistency diet Neurology out-patient follow up. repeat LFTs in 3 weeks due to initiation on Statin. 2. HTN - better controlled on Chlorthalidone, Olmesartan, Carvedilol, Amlodipine 3. CKD 3 - Stable. 4. DM 2, A1C 6.8 - Januvia to resume on discharge. 5. Hypomagnesemia - repleted. Medically and Neurologically Stable for discharge.
--- NOTE | 2019-11-18 15:14 | DS ---
Physical Exam: SUBJECTIVE: Patient seen and examined at bedside. No acute events overnight. OBJECTIVE: Vital Signs Period Temp Pulse Resp BP Sys/Castillo Pulse Ox Last 24 Hr 97.7 F-98.7 F 60-88 14-20 124-158/63-116 93-98 PHYSICAL EXAM GENERAL: AAOx3, in no acute distress HEENT: NCAT, PERRLA, EOMI, sclera anicteric, conjunctiva clear, oropharynx clear w/o exudates. MMM. NECK: Normal ROM, supple, no lymphadenopathy, JVD, or masses LUNGS: CTABL no wheezes/ rhonchi/ rales. No distress, speaks in full sentences. No increased work of breathing. HEART: RRR, normal S1 S2, no M/R/G, peripheral pulses 2+ and equal b/l ABDOMEN: Soft, NTND, + BS. No guarding or rebound. No hepatomegaly or splen omegaly. MSK: ROM WNL. very mild RUE weakness. EXTREMITIES: Normal inspection. No peripheral edema. No clubbing or cyanosis. NEUROLOGICAL: R partial facial nerve weakness. slight right sided lip drooping/ nasolabial flattening. Slight slurring of speech noted. Normal speech, normal gait, no focal sensorimotor deficits. SKIN: Warm, Dry, normal turgor, no rashes or lesions noted LABS Laboratory Results - last 24 hr CBC, BMP 11/18/19 07:00 11/18/19 07:00 11/17/19 11/17/19 11/18/19 00:15 17:39 05:29 WBC RBC Hgb Hct MCV MCH MCHC RDW Plt Count MPV Absolute Neuts (auto) Neutrophils % Lymphocytes % Monocytes % Eosinophils % Basophils % Nucleated RBC % Sodium Potassium Chloride Carbon Dioxide Anion Gap BUN Creatinine Est GFR (CKD-EPI)AfAm Est GFR (CKD-EPI)NonAf POC Glucometer 134 130 Random Glucose Calcium Phosphorus Magnesium Total Bilirubin AST ALT Alkaline Phosphatase Total Protein Albumin COVID-19 (LEANNA) Not detected 11/18/19 11/18/19 07:00 07:00 WBC 8.3 RBC 5.31 Hgb 14.7 Hct 43.9 MCV 82.7 MCH 27.6 MCHC 33.4 RDW 16.5 H Plt Count 265 MPV 9.0 Absolute Neuts (auto) 5.2 Neutrophils % 62.1 Lymphocytes % 28.8 Monocytes % 7.3 Eosinophils % 1.1 Basophils % 0.7 Nucleated RBC % 0 Sodium 137 Potassium 3.5 Chloride 98 Carbon Dioxide 33 H Anion Gap 7 L BUN 22.6 H Creatinine 1.6 H Est GFR (CKD-EPI)AfAm 57.77 Est GFR (CKD-EPI)NonAf 49.85 POC Glucometer Random Glucose 110 H Calcium 9.5 Phosphorus 4.0 Magnesium 1.6 L Total Bilirubin 0.8 AST 17 ALT 26 Alkaline Phosphatase 84 Total Protein 7.8 Albumin 3.6 COVID-19 (LEANNA) HOSPITAL COURSE: 49 year old male with history of HTN, DM 2, CKD 3, history of L sided Linn's Palsy, presents with 3 day history of generalized weakness, slurring of speech, headache, initially presented to [facility] 3 days ago and had a negative CT head at that point. MRI/MRA done at admission at [facility] showed L pontine acute infarct;large retention cyst vs polyp. Patient was admitted for an acute CVA with residual partial L factial droop with very mild RUE weakness. Patient was seen by neuro and was determined to be neurologically stable and was cleared for discharge with DAPT and a statin. Patient was cleared by speech and cleared for a regular diet. Patient was started on a statin due to his ACVSD risk factor and recommended outpatient repeat liver function tests in 3 weeks since this is his first time on a statin. Patient was discharged with outpatient neuro reccs. Date of Admission:11/16/19 11/14/19-CXR- No acute chest pathology. 11/14/19-Head CT w/o contrast- Impression: No acute bleed or fracture.No CT evidence of acute infarct. Right maxillary sinus polyp or retention cyst. Recommend ENT consultation 11/16/1942-MWF-Gtomczqwgd: No acute chest pathology 11/16/19-EKG-NSR. LA enlargement. possible anterior fasicular block. LVH. 11/16/19-MRI brain w/o contrast-Left pontine acute infarct measuring 2 x 1.3 cm Large retention cyst versus polyp in the right x-ray antrum measuring 2.7 cm. No gross focal hemodynamically significant stenosis, aneurysm, major artery cutoff or vascular malformation is identified within the central intracranial arterial circulation. 11/16/19-echocardiogram- LV thickness and function normal. LA moderately dilated. Trace MR and TR. RV systolic pressure is 23 mm Hg. Bubble study negative. 11/16/19-MRI neck w/o contrast- There is no evidence of hemodynamically significant stenosis at the common carotid bifurcation, bilaterally. 11/17/19-doppler US- Likely tiny plaque at the right common Date of Discharge: 11/18/19 Minutes to complete discharge: 36 Discharge Summary Problems reviewed: Yes Reason For Visit: HEADACHE VERTIGO Current Active Problems Headache (Acute) Right sided weakness (Acute) Condition: Stable - Instructions Diet, Activity, Other Instructions: Your visit: You were admitted to the hospital for headache, slurred speech, and weakness. We did imaging at the hospital and you were found to have a stroke on the Left side of your brain measuring 2 x 1.3 cm. Medications changes: New Meds: -Since you had a stroke we started you on a blood thinner. Please take 1 PILL of ASPIRIN 81 MG ONCE A DAY. -Since you had a stroke we started you on a blood thinner. Please take 1 PILL of PLAVIX 75 MG ONCE A DAY. -We are starting you on a statin to help your cholesterol levels. Please take 1 PILL of ATORVOSTATIN 40 MG ONCE A DAY. Since this medication is new, you will need to have blood work to see your liver function in 3 weeks with your primary care doctor. -Continue to take all other home medications as prescribed. Follow up: - Please follow-up with your neurologist, Dr. Thomas in 1 week to follow up about your recent stroke and to go over your medication changes. - Visit with your Primary Care Provider in 2 weeks to get blood work for your liver function since we are starting you on a statin medication. If you do not have a primary care provider you may make an appointment with Dr. Gaston at the [facility] clinic located at [address] [place] [address] ([phone]). -Please follow up with your radon inspector. You can make an appointment at [phone]. Additional Instructions: -Please make sure you take your blood pressure medications and regularly check your blood pressure at home to prevent another stroke. -You are being discharged to your home. -Please return to the Emergency Department if you experience worsening pain, fevers, chills, shortness of breath, or chest pain, or if you experience any worsening, new or concerning symptoms. Referrals: Emil Moore MD [Staff Physician] - 1 Week (f/u for stroke ) Christian Thomas MD [Staff Physician] - 1 Week (f/u for stroke) Disposition: HOME - Home Medications Comprehensive Discharge Medication List: Ambulatory Orders Amlodipine Besylate [Norvasc -] 10 mg PO DAILY #30 tablet 02/18/17 Carvedilol [Coreg -] 25 mg PO BID #60 tablet 02/18/17 Chlorthalidone [Hygroton -] 25 mg PO DAILY #30 tablet 02/18/17 Colchicine [Colcrys] 0.6 mg PO BID 10/09/19 Ergocalciferol [Vitamin D2] 50,000 unit PO WEEKLY 10/09/19 Olmesartan Medoxomil 40 mg PO DAILY 11/16/19 Sitagliptin Phosphate [Januvia] 100 mg PO DAILY 11/17/19 Aspirin [ASA -] 81 mg PO DAILY 30 Days #30 tab.chew 11/18/19 Atorvastatin Ca [Lipitor] 40 mg PO HS #30 tablet 11/18/19 Clopidogrel Bisulfate [Plavix -] 75 mg PO DAILY 30 Days #30 tablet 11/18/19 This patient is new to me today: No Emergency Visit: No Critical Care patient: No - Discharge Referral Referred to [facility] Med [facility] No ATTENDING PHYSICIAN STATEMENT I saw and evaluated the patient. I reviewed the resident's note and discussed the case with the resident. I agree with the resident's findings and plan as documented. SUBJECTIVE: OBJECTIVE: ASSESSMENT AND PLAN:
[2019-11-18 23:31] VITALS: BMI 24.4
== END 2019-11-18 16:45 | disposition home or self-care (01) | DRG 66 ==
LOC: JER 11:34 → JERBED 16:43 → J4S 11-17 16:16
DX: I63.9 Cerebral infarction, unspecified (principal); J45.909 Unspecified asthma, uncomplicated; E78.5 Hyperlipidemia, unspecified; R47.81 Slurred speech; R29.702 NIHSS score 2; I25.10 Atherosclerotic heart disease of native coronary artery without angina pectoris; I12.9 Hypertensive chronic kidney disease with stage 1 through stage 4 chronic kidney disease, or unspecified chronic kidney disease; E11.22 Type 2 diabetes mellitus with diabetic chronic kidney disease; N18.30 Chronic kidney disease, stage 3 unspecified; G43.909 Migraine, unspecified, not intractable, without status migrainosus; E66.9 Obesity, unspecified; Z68.24 Body mass index [BMI] 24.0-24.9, adult; I69.392 Facial weakness following cerebral infarction; E83.42 Hypomagnesemia; I44.4 Left anterior fascicular block; J33.8 Other polyp of sinus
CPT/HCPCS: 36415; 70544-TC; 70547-TC; 70551-TC; 71045-TC-FY; 80053; 80061; 81003; 82550; 82553; 82962; 83036; 83721; 83735; 84100; 84443; 84484; 85025; 85610; 85730; 87529; 87799; 87804; 93005; 93010; 93306-TC; 93880-TC; 97116-GP; 97161-GP; 99291; C9803; J0131; J1644; U0003

== ENCOUNTER 2020-05-27 17:58 | Emergency (ER) | payer BC ==
[2020-05-27 18:13] VITALS: BP 126/82; PULSE 71; TEMP 98.8; BMI 37.5
[2020-05-27] MEDS ORDERED: IBUPROFEN 400 MG TABLET (FP) PO ONE ×2 (18:32→18:49)
[2020-05-27 21:14] LABS: BF WBC & OTHER NUCLEATED CELLS 23095 /mm3
[2020-05-27 22:34] LABS: BODY FLUID MONOCYTE 12 %
[2020-05-27] MEDS ORDERED: KETOROLAC TROMETHAMINE 60 MG/2 ML VIAL IM ONE (23:15)
[2020-05-27] MEDS ORDERED: predniSONE 20 MG TABLET (UD) PO ONE (23:15)
[2020-05-27] MEDS ORDERED: predniSONE 20 MG TABLET (UD) ONE ×2 (23:18→23:19)
[2020-05-27] MEDS ORDERED: KETOROLAC TROMETHAMINE 60 MG/2 ML VIAL ONE (23:18)
== END 2020-05-27 23:24 | disposition home or self-care (01) ==
LOC: FER 17:58
PROC: 3E0233Z Introduction of Anti-inflammatory into Muscle, Percutaneous Approach (ICD-10-PCS; principal; 2020-05-27)
DX: M25.462 Effusion, left knee (principal)
CPT/HCPCS: 36415; 73562-TC-RT-FY; 84560; 87070; 87075; 87205; 99284-25